=== PATIENT | female | born 1985 | race Hispanic/Latino ===

== ENCOUNTER 2020-09-25 23:05 | Emergency (ER) | payer SELFPAY ==
--- OUTSIDE RECORDS SUMMARY | 2020-09-25 23:08 | XMS REPORT | Continuity of Care Document ---
:1985 Author Organization [facility] t Address [address] [place] [address] Care Team Providers Name Role Phone Unavailable Unavailable Unavailable Payers Payer Name Policy Type Policy Number Effective Date Expiration Date S ource Problems This patient has no known problems. Allergies, Adverse Reactions, Alerts Allergy Allergy Status Severity Reaction(s) Onset Inactive Treating Comm ents Source Name Type Date Date Clinician No Known DA Active U [facility] Allergie 08-05 Paulo s 00:00: d 00 [facility] Medications This patient has no known medications. Procedures This patient has no known procedures. Results Test Description Test Time Test Comments Results Result Comments Source BASIC METABOLIC PANEL 2020-08-05 03:06:00 Test Item Value Reference Range Interpretation Comme nts SODIUM (test code = NA) 138 mmol/L 134-147 N POTASSIUM (test code = K) 3.5 mmol/L 3.4-5.0 N CHLORIDE (test code = CL) 107 mmol/L 100-108 N CARBON DIOXIDE (test code = CO2) 27 mmol/L 21-32 N ANION GAP (test code = GAP) 4.0 GAP calc 4.0-15.0 N GLUCOSE (test code = GLU) 88 MG/DL 70-110 N BLOOD UREA NITROGEN (test code = BUN) 10 MG/DL 7-18 N GLOMERULAR FILTRATION RATE (test code = GFR) >=60 max estimate estG FR >60 CREATININE (test code = CREAT) 0.7 MG/DL 0.6-1.0 N CALCIUM (test code = CA) 8.8 MG/DL 8.5-10.1 N HEPATIC FUNCTION [id number] 03:06:00 Test Item Value Reference Range Interpretation Comments TOTAL PROTEIN (test code = PROT) 6.5 G/DL 6.4-8.2 N ALBUMIN (test code = ALB) 3.2 G/DL 3.4-5.0 L BILIRUBIN TOTAL (test code = BILT) 0.60 MG/DL 0.2-1.2 N BILIRUBIN DIRECT (test code = 0.10 MG/DL 0.00-0.30 N BILD) BILIRUBIN INDIRECT (test code = 0.50 MG/DL 0.2-1.2 N BILIND) SGOT/AST (test code = AST) 41 Unit/L 15-37 H SGPT/ALT (test code = ALT) 37 Unit/L 12-78 N ALKALINE PHOSPHATASE TOTAL (test 66 Unit/L 45-117 N code = ALKP) [id number] 03:06:00 Test Item Value Reference Range Interpretation Comments LIPASE (test code = LIP) 125 Unit/L 114-286 N UR HCG [id number] 02:40:00 Test Item Value Reference Range Interpretation Comments UR HCG QUAL (test code = HCGQLU) NEGATIVE NEGATIVE UA RFLX MICR CULT IF [id number] 02:38:00 Test Item Value Reference Range Interpretation Comments UA COLOR (test code = COLU) YELLOW discript YEL/STRAW UA APPEARANCE (test code = CLEAR discript CLEAR APPU) UA GLUCOSE DIPSTICK (test NEGATIVE mg/dL NEG code = DGLUU) UA BILIRUBIN DIPSTICK (test NEGATIVE mg/dL NEG code = BILU) UA KETONE DIPSTICK (test NEGATIVE mg/dL NEG code = KETU) UA SPECIFIC GRAVITY (test >=1.030 SG 1.005-1.030 A code = SGU) UA BLOOD DIPSTICK (test NEGATIVE mg/DL NEG code = LEDA) UA PH DIPSTICK (test code = 5.5 pH UNITS 5.0-7.0 MADELYN) UA PROTEIN DIPSTICK (test NEGATIVE mg/dL NEG code = PROU) UA UROBILINIOGEN DIPSTICK 0.2 mg/dL <2.0 (test code = URO) UA NITRITE DIPSTICK (test NEGATIVE SCREEN NEG code = ZOIE) UA LEUKOCYTE ESTERASE NEGATIVE Leuk/mcL NEGATIVE DIPSTICK (test code = LEUU) UA CULTURE NEEDED? (test Criteria Culture CHK code = UACULT) Indication for culture: Dysuria/FrequencyUA RFLX MICR CULT IF INDICATED 2020-08-05 02:38:00 Test Item Value Reference Range Interpretation Comments UA COLOR (test code = YELLOW discript YEL/STRAW COLU) UA APPEARANCE (test code CLEAR discript CLEAR = APPU) UA GLUCOSE DIPSTICK (test NEGATIVE mg/dL NEG code = DGLUU) UA BILIRUBIN DIPSTICK NEGATIVE mg/dL NEG (test code = BILU) UA KETONE DIPSTICK (test NEGATIVE mg/dL NEG code = KETU) UA SPECIFIC GRAVITY (test >=1.030 SG 1.005-1.030 A code = SGU) UA BLOOD DIPSTICK (test NEGATIVE mg/DL NEG code = LEDA) UA PH DIPSTICK (test code 5.5 pH UNITS 5.0-7.0 = MADELYN) UA PROTEIN DIPSTICK (test NEGATIVE mg/dL NEG code = PROU) UA UROBILINIOGEN DIPSTICK 0.2 mg/dL <2.0 (test code = URO) UA NITRITE DIPSTICK (test NEGATIVE SCREEN NEG code = ZOIE) UA LEUKOCYTE ESTERASE NEGATIVE Leuk/mcL NEGATIVE DIPSTICK (test code = LEUU) UA CULTURE NEEDED? (test NO, WBC<10 Criteria Culture CHK code = UACULT) Indication for culture: Dysuria/FrequencyCBC W/AUTO [id number] 02:37:00 Test Item Value Reference Range Interpretation Comments WHITE BLOOD CELL (test code = 13.3 K/mm3 3.5-11.0 H WBC) RED BLOOD CELL (test code = 4.58 M/mm3 4.70-6.10 L RBC) HEMOGLOBIN (test code = HGB) 12.4 G/DL 10.4-14.9 N HEMATOCRIT (test code = HCT) 38.3 % 31.5-44.1 N MEAN CELL VOLUME (test code = 83.6 Fl 84.5-98.6 L MCV) MEAN CELL HGB (test code = MCH) 27.1 pg 27.0-34.2 N MEAN CELL HGB CONCETRATION 32.4 G/DL 31.5-34.0 N (test code = MCHC) RED CELL DISTRIBUTION WIDTH 12.7 SD 11.5-14.5 N (test code = RDW) PLATELET COUNT (test code = 281 K/mm3 150-450 N PLT) MEAN PLATELET VOLUME (test code 9.80 fL 7.0-10.5 N = MPV) NEUTROPHIL % (test code = NT%) 70.3 % 40-76 N IMMATURE GRANULOCYTE % (test 0.4 % 0.0-5.0 N code = IG%) LYMPHOCYTE % (test code = LY%) 19.4 % 20.5-51.1 L MONOCYTE % (test code = MO%) 7.8 % 1.7-9.3 N EOSINOPHIL % (test code = EO%) 1.7 % 0.0-6.0 N BASOPHIL % (test code = BA%) 0.4 % 0.0-2.0 N NUCLEATED RBC % (test code = 0.0 /100WBC% 0.0-1.0 N NRBC%) NEUTROPHIL # (test code = NT#) 9.3 K/mm3 1.8-7.6 H IMMATURE GRANULOCYTE # (test 0.05 x10 3/uL 0.00-0.03 H code = IG#) LYMPHOCYTE # (test code = LY#) 2.6 K/mm3 0.6-3.2 N MONOCYTE # (test code = MO#) 1.0 K/mm3 0.3-1.1 N EOSINOPHIL # (test code = EO#) 0.2 K/mm3 0.0-0.4 N BASOPHIL # (test code = BA#) 0.1 K/mm3 0.0-0.1 N NUCLEATED RBC # (test code = 0.0 K/mm3 0.0-0.1 N NRBC#) MANUAL DIFF REQUIRED (test code NO DIFF/SCN CRITERIA = MDIFF)
[2020-09-25] MEDS ORDERED: SIMETHICONE 80 MG TAB ONE (23:48)
[2020-09-25] MEDS ORDERED: PANTOPRAZOLE 40 MG INJ ONE (23:48)
[2020-09-25] MEDS ORDERED: NA CHLORIDE 0.9% 1,000 ML ONE (23:48)
[2020-09-25] MEDS ORDERED: PROMETHAZINE INJ 25 MG/ML AMP ONE (23:48)
[2020-09-25 23:55] LABS: Absolute Lymphocytes (CBC) 3.4 K/uL (0.7-4.9); Hematocrit 38.1 % (36.0-45.0); Lymphocytes % 30.2 % (15.3-44.8); MPV 8.5 fL (7.6-11.3)
[2020-09-26 00:16] LABS: ALT/SGPT 58 U/L (12-78); AST/SGOT 75 U/L (15-37); Albumin 3.9 g/dL (3.4-5.0); Alkaline Phosphatase 68 U/L (45-117); BUN Blood Urea Nitrogen 12 mg/dL (7-18); Bicarbonate 27 mmol/L (21-32); Bilirubin Direct 0.2 mg/dL (0-0.2); Bilirubin Total 0.4 mg/dL (0.2-1.0); Glucose Level 94 mg/dL (74-106); Lipase 468 U/L (73-393); Potassium 3.4 mmol/L (3.5-5.1); Protein, Total 7.7 g/dL (6.4-8.2); Sodium Level 140 mmol/L (136-145)
--- NOTE | 2020-09-26 01:21 | EDPHYS ---
Physician Documentation [facility] Name: Brandie Rees Age: 35 yrs Sex: Female : 1985 Arrival Date: 09/25/2020 Time: 23:07 Bed 15 Private MD: ED Physician Gerald Burt HPI: 09/25 23:56 This 35 yrs old Female presents to ER via Ambulatory with complaints of Vomiting, snw Abdominal Pain. 23:56 The patient presents to the emergency department with vomiting, abdominal pain, of the snw epigastric area and left upper quadrant, described as bloating , and radiates to the back. Onset: The symptoms/episode began/occurred acutely, 2 day(s) ago. The symptoms are aggravated by food . Severity of symptoms: At their worst the symptoms were moderate in the emergency department the symptoms are unchanged. The patient has not experienced similar symptoms in the past. The patient has not recently seen a physician. denies abdominal surgeries. LMP 09/04/20. 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 - Social history:: Smoking status: Patient denies any tobacco usage or history of. Patient/guardian denies using alcohol, street drugs. ROS: 23:55 Constitutional: Negative for fever, chills, and weight loss, Eyes: Negative for injury, snw pain, redness, and discharge, ENT: Negative for injury, pain, and discharge, Neck: Negative for injury, pain, and swelling, Cardiovascular: Negative for chest pain, palpitations, and edema, Respiratory: Negative for shortness of breath, cough, wheezing, and pleuritic chest pain, Back: Negative for injury and pain, : Negative for injury, bleeding, discharge, and swelling, MS/Extremity: Negative for injury and deformity, Skin: Negative for injury, rash, and discoloration, Neuro: Negative for headache, weakness, numbness, tingling, and seizure, Psych: Negative for depression, anxiety, suicide ideation, homicidal ideation, and hallucinations. 23:55 Abdomen/GI: Positive for abdominal pain, nausea, vomiting, abdominal distension, of the epigastric area and left upper quadrant. Exam: 23:55 Constitutional: This is a well developed, well nourished patient who is awake, alert, snw and in no acute distress. Head/Face: Normocephalic, atraumatic. Eyes: Pupils equal round and reactive to light, extra-ocular motions intact. Lids and lashes normal. Conjunctiva and sclera are non-icteric and not injected. Cornea within normal limits. Periorbital areas with no swelling, redness, or edema. ENT: Nares patent. No nasal discharge, no septal abnormalities noted. Tympanic membranes are normal and external auditory canals are clear. Oropharynx with no redness, swelling, or masses, exudates, or evidence of obstruction, uvula midline. Mucous membranes moist. Neck: Trachea midline, no thyromegaly or masses palpated, and no cervical lymphadenopathy. Supple, full range of motion without nuchal rigidity, or vertebral point tenderness. No Meningismus. Chest/axilla: Normal chest wall appearance and motion. Nontender with no deformity. No lesions are appreciated. Cardiovascular: Regular rate and rhythm with a normal S1 and S2. No gallops, murmurs, or rubs. Normal PMI, no JVD. No pulse deficits. Respiratory: Lungs have equal breath sounds bilaterally, clear to auscultation and percussion. No rales, rhonchi or wheezes noted. No increased work of breathing, no retractions or nasal flaring. Back: No spinal tenderness. No costovertebral tenderness. Full range of motion. Skin: Warm, dry with normal turgor. Normal color with no rashes, no lesions, and no evidence of cellulitis. MS/ Extremity: Pulses equal, no cyanosis. Neurovascular intact. Full, normal range of motion. Neuro: Awake and alert, GCS 15, oriented to person, place, time, and situation. Cranial nerves II-XII grossly intact. Motor strength 5/5 in all extremities. Sensory grossly intact. Cerebellar exam normal. Normal gait. 23:55 Abdomen/GI: Inspection: distension, Bowel sounds: diminished, Palpation: moderate abdominal tenderness, in the epigastric area and left upper quadrant. Vital Signs: 23:17 BP 122 / 75; Pulse 76; Resp 18; Temp 98.2(TE); Pulse Ox 100% on R/A; Weight 113.4 kg jb4 (R); Height 5 ft. 3 in. (160.02 cm) (R); Pain 8/10; 09/26 00:10 BP 113 / 57; Pulse 68; Resp 16; Temp 97.6; Pulse Ox 100% ; Pain 0/10; cr4 01:45 BP 108 / 71; Pulse 66; Resp 16; Pulse Ox 99% on R/A; jb4 09/25 23:17 Body Mass Index 44.29 (113.40 kg, 160.02 cm) jb4 MDM: 09/25 23:17 Patient medically screened. snw 09/26 01:21 Data reviewed: vital signs, nurses notes. Data interpreted: Pulse oximetry: on room air snw is 100 %. Interpretation: normal. Counseling: I had a detailed discussion with the patient and/or guardian regarding: the historical points, exam findings, and any diagnostic results supporting the discharge/admit diagnosis, lab results, radiology results, the need for outpatient follow up, to return to the emergency department if symptoms worsen or persist or if there are any questions or concerns that arise at home. Response to treatment: the patient's symptoms have resolved after treatment, the patient's pain is gone. Special discussion: Based on the patient's Hx, exam, and Dx evaluation, there is no indication for emergent surgery or inpatient Tx. It is understood by the patient/guardian that if the Sx's persist or worsen they need to return immediately for re-evaluation. Based on the history and exam findings, there is no indication for further emergent testing or inpatient evaluation. I discussed with the patient/guardian the need to see the primary care provider for further evaluation of the symptoms. 09/25 23:27 Order name: Basic Metabolic Panel; Complete Time: 00:32 snw 09/25 23:27 Order name: CBC with Diff; Complete Time: 00:02 snw 09/25 23:27 Order name: Hepatic Function; Complete Time: 00:32 snw 09/25 23:27 Order name: Lipase; Complete Time: 00:32 snw 09/25 23:27 Order name: Test, Serum; Complete Time: 00:12 snw 09/25 23:27 Order name: IV Saline Lock; Complete Time: 23:40 snw 09/25 23:27 Order name: Labs collected and sent; Complete Time: 23:40 snw Administered Medications: 09/25 23:35 Drug: Simethicone 120 mg Route: PO; jb4 09/26 00:57 Follow up: Response: No adverse reaction; Pain is decreased cr4 00:00 Drug: NS 0.9% 1000 ml Route: IV; Rate: 1 bolus; Site: right antecubital; cr4 00:56 Follow up: Rate change bolus; IV Status: Completed infusion; IV Intake: 1000ml cr4 00:08 Drug: Phenergan 12.5 mg Route: IVP; Site: right antecubital; cr4 00:56 Follow up: Response: No adverse reaction; Nausea is decreased cr4 00:09 Drug: ProTONIX 40 mg Route: IVP; Site: right antecubital; cr4 00:56 Follow up: Response: No adverse reaction cr4 Disposition: 05:21 Co-signature as Attending Physician, Gerald Burt MD I agree with the assessment and tw4 plan of care. Disposition: 09/26/20 01:20 Discharged to Home. Impression: Upper abdominal pain, unspecified, Vomiting. - Condition is Stable. - Discharge Instructions: Abdominal Pain, Adult, Fat and Cholesterol Restricted Diet, Nausea and Vomiting, Adult, Rehydration, Adult. - Prescriptions for Bentyl 20 mg Oral Tablet - take 1 tablet by ORAL route every 6 hours As needed; 20 tablet. Carafate 1 gram Oral Tablet - take 1 tablet by ORAL route 4 times per day take on an empty stomach, beginning on waking and last dose at bedtime; 100 tablet. promethazine 25 mg Oral Tablet - take 1 tablet by ORAL route every 6 hours As needed; 20 tablet. - Work release form, Medication Reconciliation Form, Thank You Letter, Antibiotic Education, Prescription Opioid Use form. - Follow up: Emergency Department; When: As needed; Reason: Worsening of condition. Follow up: Private Physician; When: 2 - 3 days; Reason: Recheck today's complaints, Continuance of care, Re-evaluation by your physician. Signatures: Dispatcher [employer] EDDea Baldwin FNP-C FNP-Geraldine Arellano RN RN cr4 Deangelo Zhou RN RN 4 Gerald Burt MD MD 4 Corrections: (The following items were deleted from the chart) 01:51 01:20 09/26/2020 01:20 Discharged to Home. Impression: Upper abdominal pain, jb4 unspecified; Vomiting. Condition is Stable. Forms are Medication Reconciliation Form, Thank You Letter, Antibiotic Education, Prescription Opioid Use. Follow up: Emergency Department; When: As needed; Reason: Worsening of condition. Follow up: Private Physician; When: 2 - 3 days; Reason: Recheck today's complaints, Continuance of care, Re-evaluation by your physician. snw
--- NOTE | 2020-09-26 01:21 | ER ---
Nurse's Notes [facility] Name: Brandie Rees Age: 35 yrs Sex: Female : 1985 Arrival Date: 09/25/2020 Time: 23:07 Bed 15 Private MD: Diagnosis: Upper abdominal pain, unspecified;Vomiting Presentation: 09/25 23:17 Chief complaint: Patient states: I have been having abdominal pain since last jb4 Monday. Tonight I have a stabbing pain in my upper abdomen that goes to my back and I vomited once. Coronavirus screen: Client denies travel out of the [place] in the last 14 days. At this time, the client does not indicate any symptoms associated with coronavirus-19. Ebola Screen: Patient negative for fever greater than or equal to 101.5 degrees Fahrenheit, and additional compatible Ebola Virus Disease symptoms. Initial Sepsis Screen: Does the patient meet any 2 criteria? No. Patient's initial sepsis screen is negative. Does the patient have a suspected source of infection? No. Patient's initial sepsis screen is negative. Risk Assessment: Do you want to hurt yourself or someone else? Patient reports no desire to harm self or others. Onset of symptoms was September 23, 2020. Transition of care: patient was not received from another setting of care. 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 - Social history:: Smoking status: Patient denies any tobacco usage or history of. Patient/guardian denies using alcohol, street drugs. Screenin:11 Abuse screen: Denies threats or abuse. Nutritional screening: No deficits noted. jb4 Tuberculosis screening: No symptoms or risk factors identified. Fall Risk None identified. Assessment: 23:11 General: Appears in no apparent distress. uncomfortable, Behavior is calm, cooperative, jb4 appropriate for age. Pain: Complains of pain in abdomen Pain does not radiate. Pain currently is 0 out of 10 on a pain scale. Neuro: Level of Consciousness is awake, alert, obeys commands, Oriented to person, place, time, situation. Cardiovascular: Patient's skin is warm and dry. Respiratory: Airway is patent Respiratory effort is even, unlabored, Respiratory pattern is regular, symmetrical. GI: Abdomen is non-distended, obese, Bowel sounds present X 4 quads. Abd is soft and non tender X 4 quads. : No signs and/or symptoms were reported regarding the genitourinary system. EENT: No signs and/or symptoms were reported regarding the EENT system. Derm: Skin is intact, Skin is pink, warm \T\ dry. Musculoskeletal: Circulation, motion, and sensation intact. Range of motion: intact in all extremities. 09/26 00:00 Reassessment: Patient appears in no apparent distress at this time. Patient and/or jb4 family updated on plan of care and expected duration. Pain level reassessed. Patient is alert, oriented x 3, equal unlabored respirations, skin warm/dry/pink. Patient states feeling better. 01:49 Reassessment: Patient appears in no apparent distress at this time. Patient and/or jb4 family updated on plan of care and expected duration. Pain level reassessed. Patient is alert, oriented x 3, equal unlabored respirations, skin warm/dry/pink. Vital Signs: 09/25 23:17 BP 122 / 75; Pulse 76; Resp 18; Temp 98.2(TE); Pulse Ox 100% on R/A; Weight 113.4 kg jb4 (R); Height 5 ft. 3 in. (160.02 cm) (R); Pain 8/10; 09/26 00:10 BP 113 / 57; Pulse 68; Resp 16; Temp 97.6; Pulse Ox 100% ; Pain 0/10; cr4 01:45 BP 108 / 71; Pulse 66; Resp 16; Pulse Ox 99% on R/A; [facility] 09/25 23:17 Body Mass Index 44.29 (113.40 kg, 160.02 cm) [facility] ED Course: 09/25 23:07 Patient arrived in ED. bp1 23:11 Patient has correct armband on for positive identification. Bed in low position. Call [facility] light in reach. Side rails up X 1. Pulse ox on. NIBP on. 23:12 Dea Merino FNP-C is PHCP. snw 23:12 Gerald Burt MD is Attending Physician. snw 23:17 Deangelo Zhou, RN is Primary Nurse. jb4 23:20 Triage completed. jb4 23:20 Arm band placed on right wrist. jb4 23:40 Inserted saline lock: 20 gauge in right antecubital area, using aseptic technique. dh4 Blood collected. 09/26 01:50 No provider procedures requiring assistance completed. IV discontinued, intact, jb4 bleeding controlled, No redness/swelling at site. Pressure dressing applied. Administered Medications: 09/25 23:35 Drug: Simethicone 120 mg Route: PO; jb4 11 00:57 Follow up: Response: No adverse reaction; Pain is decreased cr4 00:00 Drug: NS 0.9% 1000 ml Route: IV; Rate: 1 bolus; Site: right antecubital; cr4 00:56 Follow up: Rate change bolus; IV Status: Completed infusion; IV Intake: 1000ml cr4 00:08 Drug: Phenergan 12.5 mg Route: IVP; Site: right antecubital; cr4 00:56 Follow up: Response: No adverse reaction; Nausea is decreased cr4 00:09 Drug: ProTONIX 40 mg Route: IVP; Site: right antecubital; cr4 00:56 Follow up: Response: No adverse reaction cr4 Intake: 00:56 IV: 1000ml; Total: 1000ml. cr4 Outcome: 01:20 Discharge ordered by . snw 01:50 Discharged to home ambulatory, with family. jb4 01:50 Condition: stable 01:50 Discharge instructions given to patient, Instructed on discharge instructions, follow up and referral plans. medication usage, Demonstrated understanding of instructions, follow-up care, medications, Prescriptions given X 3. 01:51 Patient left the ED. jb4 Signatures: Dea Merino FNP-C BOTTLE CASER-Csnw Geraldine Chiu RN RN jerson4 Deangelo Zhou, VIOLETA MCDANIEL jb4 Kam Webb 4 Lolita Mckay
[2020-09-26 02:29] VITALS: TEMP 97.6
[2020-09-26 02:30] VITALS: BP 108/71; O2SAT 99
== END 2020-09-26 01:51 | disposition home or self-care (01) ==
LOC: ER 23:05
DX: R10.10 Upper abdominal pain, unspecified (principal)
CPT/HCPCS: 36415; 80048; 80076; 83690; 84703; 85025; 96361; 96374; 96375; 99284; C9113; J2550; J7030

== ENCOUNTER 2020-10-07 04:21 | Emergency (ER) | payer SELFPAY ==
[2020-10-07] MEDS ORDERED: ONDANSETRON 4 MG/2 ML VIAL ONE (04:52)
[2020-10-07] MEDS ORDERED: FAMOTIDINE 20 MG/2 ML VIAL IV ONE (04:52)
[2020-10-07] MEDS ORDERED: NA CHLORIDE 0.9% 1,000 ML ONE (04:52)
[2020-10-07] MEDS ORDERED: MORPHINE 2 MG/ML SYR ONE (04:52)
[2020-10-07 05:06] LABS: Absolute Lymphocytes (CBC) 1.7 K/uL (0.7-4.9); Basophils % 0.8 % (0-1.3); Lymphocytes % 22.5 % (15.3-44.8); MPV 8.5 fL (7.6-11.3); RBC Red Blood Cell Count 4.93 M/uL (3.86-4.86)
--- NOTE | 2020-10-07 05:15 | EDPHYS ---
Physician Documentation [facility] Name: Brandie Rees Age: 35 yrs Sex: Female : 1985 Arrival Date: 10/07/2020 Time: 04:23 Bed 19 Private MD: WOJCIECH Physician Ruben Helms HPI: 10/07 05:08 This 35 yrs old Female presents to ER via Ambulatory with complaints of bronwyn Abdominal Pain, Vomiting. 05:08 The patient presents to the emergency department with nausea, vomiting, that is bronwyn intermittent. Onset: The symptoms/episode began/occurred this morning, today. Possible causes: unknown. The symptoms are aggravated by food , The symptoms are alleviated by nothing. Associated signs and symptoms: The patient has no apparent associated signs or symptoms. Severity of symptoms: At their worst the symptoms were mild moderate in the emergency department the symptoms have improved mildly. The patient has not experienced similar symptoms in the past. INSTALLER: 08:18 LMP N/A - iw Historical: - Allergies: 04:35 No Known Allergies; sg - Home Meds: 04:35 None [Active]; sg - PMHx: 04:35 None; sg - PSHx: 04:35 None; sg - Immunization history:: Adult Immunizations up to date. - Social history:: Smoking status: Patient denies any tobacco usage or history of. - Family history:: not pertinent. ROS: 05:08 Constitutional: Negative for fever, chills, and weight loss, Eyes: Negative for injury, bronwyn pain, redness, and discharge, ENT: Negative for injury, pain, and discharge, Neck: Negative for injury, pain, and swelling, Cardiovascular: Negative for chest pain, palpitations, and edema, Respiratory: Negative for shortness of breath, cough, wheezing, and pleuritic chest pain, Back: Negative for injury and pain, : Negative for injury, bleeding, discharge, and swelling, MS/Extremity: Negative for injury and deformity, Skin: Negative for injury, rash, and discoloration, Neuro: Negative for headache, weakness, numbness, tingling, and seizure, Psych: Negative for depression, anxiety, suicide ideation, homicidal ideation, and hallucinations, Allergy/Immunology: Negative for hives, rash, and allergies, Endocrine: Negative for neck swelling, polydipsia, polyuria, polyphagia, and marked weight changes, Hematologic/Lymphatic: Negative for swollen nodes, abnormal bleeding, and unusual bruising. 05:08 Abdomen/GI: Positive for abdominal pain, abdominal cramps. Exam: 05:08 Constitutional: This is a well developed, well nourished patient who is awake, alert, bronwyn and in no acute distress. Head/Face: Normocephalic, atraumatic. Eyes: Pupils equal round and reactive to light, extra-ocular motions intact. Lids and lashes normal. Conjunctiva and sclera are non-icteric and not injected. Cornea within normal limits. Periorbital areas with no swelling, redness, or edema. ENT: Nares patent. No nasal discharge, no septal abnormalities noted. Tympanic membranes are normal and external auditory canals are clear. Oropharynx with no redness, swelling, or masses, exudates, or evidence of obstruction, uvula midline. Mucous membranes moist. Neck: Trachea midline, no thyromegaly or masses palpated, and no cervical lymphadenopathy. Supple, full range of motion without nuchal rigidity, or vertebral point tenderness. No Meningismus. Chest/axilla: Normal chest wall appearance and motion. Nontender with no deformity. No lesions are appreciated. Cardiovascular: Regular rate and rhythm with a normal S1 and S2. No gallops, murmurs, or rubs. Normal PMI, no JVD. No pulse deficits. Respiratory: Lungs have equal breath sounds bilaterally, clear to auscultation and percussion. No rales, rhonchi or wheezes noted. No increased work of breathing, no retractions or nasal flaring. Back: No spinal tenderness. No costovertebral tenderness. Full range of motion. Skin: Warm, dry with normal turgor. Normal color with no rashes, no lesions, and no evidence of cellulitis. MS/ Extremity: Pulses equal, no cyanosis. Neurovascular intact. Full, normal range of motion. Neuro: Awake and alert, GCS 15, oriented to person, place, time, and situation. Cranial nerves II-XII grossly intact. Motor strength 5/5 in all extremities. Sensory grossly intact. Cerebellar exam normal. Normal gait. Psych: Awake, alert, with orientation to person, place and time. Behavior, mood, and affect are within normal limits. 05:08 Abdomen/GI: Inspection: abdomen appears normal, Bowel sounds: normal, Palpation: mild abdominal tenderness, moderate abdominal tenderness, in the epigastric area and right upper quadrant, Indicators: Elaine's sign is positive, Liver: no appreciated palpable abnormalities, Hernia: not appreciated. Vital Signs: 04:32 BP 138 / 77; Pulse 78; Resp 18; Temp 98.7(O); Pulse Ox 100% on R/A; Weight 113.4 kg sg (R); Height 5 ft. 3 in. (160.02 cm) (R); Pain 8/10; 04:55 BP 128 / 52; Pulse 70; Resp 16; Pulse Ox 100% on R/A; Pain 8/10; sg 05:45 BP 105 / 48; Pulse 59; Resp 16; Pulse Ox 100% on R/A; jb4 06:45 BP 123 / 68; Pulse 75; Resp 16; Temp 97.7(TE); Pulse Ox 100% on R/A; jb4 04:32 Body Mass Index 44.29 (113.40 kg, 160.02 cm) sg MDM: 04:27 Patient medically screened. [facility] 05:10 Differential diagnosis: Nonspecific abd pain, cholecystitis, pancreatitis, bronwyn diverticulitis, viral gastroenteritis, gastroenteritis. Data reviewed: vital signs, nurses notes, lab test result(s), radiologic studies, CT scan. Data interpreted: boss dyer: rate is 70 beats/min, rhythm is regular, Pulse oximetry: on room air is 100 %. Test interpretation: by ED physician or midlevel provider:. Counseling: I had a detailed discussion with the patient and/or guardian regarding: the historical points, exam findings, and any diagnostic results supporting the discharge/admit diagnosis, lab results, radiology results, the need for further work-up and treatment in the hospital. 10/07 04:33 Order name: Basic Metabolic Panel; Complete Time: 06:20 [facility] 10/07 04:33 Order name: CBC with Diff; Complete Time: 06:20 [facility] 10/07 04:33 Order name: Hepatic Function; Complete Time: 06:20 [facility] 10/07 04:33 Order name: Lipase; Complete Time: 06:20 [facility] 10/07 05:34 Order name: Urine --Ancillary (enter results) [facility] 10/07 05:35 Order name: Urine Dipstick--Ancillary (enter results) [facility] 10/07 04:33 Order name: US Abdomen Limited [facility] 10/07 05:05 Order name: CT Abd/Pelvis - IV Contrast Only [facility] 10/07 05:47 Order name: Urine --Ancillary; Complete Time: 06:20 [facility] 10/07 05:48 Order name: Urine Dipstick-Ancillary; Complete Time: 06:20 [facility] 10/07 07:20 Order name: US [facility] 10/07 04:33 Order name: IV Saline Lock; Complete Time: 04:55 [facility] 10/07 04:33 Order name: Labs collected and sent; Complete Time: 04:55 [facility] 10/07 04:33 Order name: Urine Dipstick-Ancillary (obtain specimen); Complete Time: 05:24 [facility] 10/07 04:33 Order name: Urine Test (obtain specimen); Complete Time: 05:24 [facility] Administered Medications: 04:50 Drug: NS 0.9% 1000 ml Route: IV; Rate: 1 bolus; Site: right antecubital; 04:50 Drug: morphine 2 mg Route: IVP; Site: right antecubital; sg 05:20 Follow up: Response: No adverse reaction; Pain is decreased jb4 04:50 Drug: Zofran (Ondansetron) 4 mg Route: IVP; Site: right antecubital; sg 05:20 Follow up: Response: No adverse reaction jb4 04:50 Drug: Pepcid 20 mg Route: IVP; Site: right antecubital; sg 05:20 Follow up: Response: No adverse reaction jb4 05:32 Drug: Zosyn 3.375 grams Route: IVPB; Infused Over: 60 mins; Site: right antecubital; jb4 Disposition: 10/07/20 05:[address] [facility]. Diagnosis are Abdominal tenderness, Cholecystitis, Cholelithiasis, Acute pancreatitis. - Reason for transfer: Higher level of care. - Accepting physician is to dr yessy balderrama. - Condition is Stable. - Problem is new. - Symptoms have improved. Signatures: Dispatcher [employer] EDMS Cuong Wilkins RN Ruben Zamora MD MD cha Williams, Irene RN VIOLETA iw Demi Eaton RN RN tl1 Deangelo Zhou RN RN jb4 Corrections: (The following items were deleted from the chart) 05:44 05:14 Hospitalization Ordered by Robinson Jade MD for Observation. Preliminary diagnosis tl1 is Abdominal tenderness; Functional dyspepsia; Cholelithiasis; Cholecystitis; Obesity, unspecified. Bed requested for Telemetry/MedSurg (observation). Status is Observation. Condition is Stable. Problem is new. Symptoms have improved. bronwyn 05:49 05:44 10/07/2020 05:14 Hospitalization Ordered by Robinson Jade MD for Observation. bronwyn Preliminary diagnosis is Abdominal tenderness; Functional dyspepsia; Cholelithiasis; Cholecystitis; Obesity, unspecified. Bed requested for [facility] ER HOLD. Status is Observation. Condition is Stable. Problem is new. Symptoms have improved. tl1 08:18 05:51 10/07/2020 05:[address] [facility]. iw Diagnosis is Abdominal tenderness; Cholecystitis; Cholelithiasis; Acute pancreatitis. Reason for transfer: Higher level of care. Accepting physician is to dr yessy balderrama. Condition is Stable. Problem is new. Symptoms have improved. bronwyn
--- NOTE | 2020-10-07 05:15 | ER ---
Nurse's Notes [facility] Name: Brandie Rees Age: 35 yrs Sex: Female : 1985 Arrival Date: 10/07/2020 Time: 04:23 Bed 19 Private MD: Diagnosis: Abdominal tenderness;Cholecystitis;Cholelithiasis;Acute pancreatitis Presentation: 10/07 04:32 Chief complaint: Patient states: pt reports pain LUQ, Epigastric area, denies f/chills sg at this time, reports having pain that radiates to the shoulder, comes and goes. Coronavirus screen: Client denies travel out of the [place] in the last 14 days. At this time, the client does not indicate any symptoms associated with coronavirus-19. Ebola Screen: Patient negative for fever greater than or equal to 101.5 degrees Fahrenheit, and additional compatible Ebola Virus Disease symptoms Patient denies exposure to infectious person. Patient denies travel to an Ebola-affected area in the 21 days before illness onset. No symptoms or risks identified at this time. Initial Sepsis Screen: Does the patient meet any 2 criteria? No. Patient's initial sepsis screen is negative. Does the patient have a suspected source of infection? Yes: Acute abdominal pain. Risk Assessment: Do you want to hurt yourself or someone else? Patient reports no desire to harm self or others. Onset of symptoms was October 07, 2020. 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 - Social history:: Smoking status: Patient denies any tobacco usage or history of. - Family history:: not pertinent. Screenin:40 Abuse screen: Denies threats or abuse. Denies injuries from another. Nutritional sg screening: No deficits noted. Tuberculosis screening: No symptoms or risk factors identified. Never had TB. Fall Risk None identified. Assessment: 04:40 General: Appears in no apparent distress. uncomfortable, well groomed, well developed, sg well nourished, Behavior is calm, cooperative, appropriate for age. Pain: Complains of pain in epigastric area and left upper quadrant Quality of pain is described as aching, sharp. Neuro: Level of Consciousness is awake, alert, obeys commands, Oriented to person, place, time, situation, Moves all extremities. Full function Gait is steady, Speech is normal, Facial symmetry appears normal. Cardiovascular: Patient's skin is warm and dry. Chest pain is denied. Respiratory: Airway is patent Respiratory effort is even, unlabored, Respiratory pattern is regular, symmetrical. GI: Abdomen is round non-distended, Bowel sounds present X 4 quads. Abd is soft X 4 quads Abdomen is tender to palpation in epigastric area and left upper quadrant. : No signs and/or symptoms were reported regarding the genitourinary system. EENT: No signs and/or symptoms were reported regarding the EENT system. Derm: Skin is pink, warm \T\ dry. Musculoskeletal: Circulation, motion, and sensation intact. Range of motion: intact in all extremities. 05:45 Reassessment: Patient appears in no apparent distress at this time. Patient and/or jb4 family updated on plan of care and expected duration. Pain level reassessed. Patient is alert, oriented x 3, equal unlabored respirations, skin warm/dry/pink. Patient states feeling better. 06:42 Reassessment: Patient appears in no apparent distress at this time. Patient and/or jb4 family updated on plan of care and expected duration. Pain level reassessed. Patient is alert, oriented x 3, equal unlabored respirations, skin warm/dry/pink. 06:56 Reassessment: attempted to call report, no answer received, informed transfer center jb that we would call back after shift change. 07:22 Reassessment: attempt to call report, asked for 20 minutes. iw Vital Signs: 04:32 BP 138 / 77; Pulse 78; Resp 18; Temp 98.7(O); Pulse Ox 100% on R/A; Weight 113.4 kg sg (R); Height 5 ft. 3 in. (160.02 cm) (R); Pain 8/10; 04:55 BP 128 / 52; Pulse 70; Resp 16; Pulse Ox 100% on R/A; Pain 8/10; sg 05:45 BP 105 / 48; Pulse 59; Resp 16; Pulse Ox 100% on R/A; jb4 06:45 BP 123 / 68; Pulse 75; Resp 16; Temp 97.7(TE); Pulse Ox 100% on R/A; jb4 04:32 Body Mass Index 44.29 (113.40 kg, 160.02 cm) ED Course: 04:23 Patient arrived in ED. cl3 04:27 Ruben Helms MD is Attending Physician. bronwyn 04:32 Arm band placed on. sg 04:34 Triage completed. sg 04:53 No provider procedures requiring assistance completed. Initial lab(s) drawn, by ma, sg sent to lab. Inserted saline lock: 20 gauge in right antecubital area, using aseptic technique. Blood collected. 05:12 Robinson Jade MD is Hospitalizing Provider. bronwyn 05:17 Deangelo Zhou, VIOLETA is Primary Nurse. jb4 05:[address] [facility] with VIOLETA Yu. mt 06:18 Dr. Helms called [facility] transfer center for update on transfer, waiting on mo hospitalist. 06:30 Admin approval given by Aimee Quesada to [facility] room [address] Dsouza. mt 06:43 Contacted [facility] for transport, 30 min ETA. mt 07:02 Report received from VIOLETA Campbell. tw2 08:00 Patient has correct armband on for positive identification. iw 08:18 Patient transferred, IV remains in place. iw Administered Medications: 04:50 Drug: NS 0.9% 1000 ml Route: IV; Rate: 1 bolus; Site: right antecubital; sg 04:50 Drug: morphine 2 mg Route: IVP; Site: right antecubital; sg 05:20 Follow up: Response: No adverse reaction; Pain is decreased jb4 04:50 Drug: Zofran (Ondansetron) 4 mg Route: IVP; Site: right antecubital; sg 05:20 Follow up: Response: No adverse reaction jb4 04:50 Drug: Pepcid 20 mg Route: IVP; Site: right antecubital; sg 05:20 Follow up: Response: No adverse reaction jb4 05:32 Drug: Zosyn 3.375 grams Route: IVPB; Infused Over: 60 mins; Site: right antecubital; jb4 Outcome: 05:14 Decision to Hospitalize by Provider. bronwyn 05:51 ER care complete, transfer ordered by . bronwyn 08:16 Transferred by ground EMS to [facility], Transfer form completed. iw X-rays sent w/ patient. 08:16 Condition: good 08:16 Discharge instructions given to patient, Instructed on the need for transfer. 08:18 Patient left the ED. Signatures: Cuong Wilkins RN RN Ruben Thomas MD MD cha Williams, Irene RN RN Heidi Calderon RN RN tw2 Deangelo Zhou RN RN Suzan Nicole mt, Charde cl3 Corrections: (The following items were deleted from the chart) 06:47 06:30 Admin approval given by Aimee Quesada to [facility] room [address] [facility]
[2020-10-07] MEDS ORDERED: PIPER/TAZO/NS 3.375gm 3.375 GM/100 ML BAG ONE (05:38)
[2020-10-07 05:40] LABS: Albumin 3.6 g/dL (3.4-5.0); Alkaline Phosphatase 79 U/L (45-117); BUN Blood Urea Nitrogen 9 mg/dL (7-18); Bicarbonate 23 mmol/L (21-32); Bilirubin Direct 0.5 mg/dL (0-0.2); Bilirubin Total 1.1 mg/dL (0.2-1.0); Glucose Level 116 mg/dL (74-106); Lipase 13644 U/L (73-393); Potassium 3.8 mmol/L (3.5-5.1); Sodium Level 138 mmol/L (136-145)
[2020-10-07 05:41] LABS: ALT/SGPT 331 U/L (12-78); AST/SGOT 333 U/L (15-37)
[2020-10-07 05:47] LABS: Urine Specific Gravity 1.015 (1.005-1.030)
[2020-10-07 05:48] LABS: Urine Blood NEGATIVE (NEG); Urine Glucose NEGATIVE (NEG); Urine Protein NEGATIVE (NEG); Urine Specific Gravity 1.015 (1.005-1.030)
--- NOTE | 2020-10-07 07:19 | RAD REPORT ---
EXAM DESCRIPTION: US - Abdomen Exam Limited - 10/07/2020 6:59 am CLINICAL HISTORY: ABD PAIN COMPARISON: Abdomen Pelvis W Contrast dated 10/07/2020 FINDINGS: No gallstones, sludge or other significant abnormalities within the gallbladder lumen. A 3 - 4 millimeter sized polyp is seen adherent to the wall in the gallbladder fundus. There is no wall t hickening or pericholecystic fluid. No common duct stone or biliary tree dilatation identified. IMPRESSION: No significant gallbladder or biliary tree finding.
--- NOTE | 2020-10-07 09:48 | RAD REPORT ---
EXAM DESCRIPTION: CT - Abdomen Pelvis W Contrast - 10/07/2020 6:54 am CLINICAL HISTORY: The patient is 35 years old and is Female; ABD PAIN TECHNIQUE: Axial computed tomography images of the abdomen and pelvis with intravenous contrast. S agittal and coronal reformatted images were created and reviewed. This CT exam was performed using one or more of the following dose reduction techniques: automated exposure control, adjustment of t he mA and/or kV according to patient size, and/or use of iterative reconstruction technique. COMPARISON: No relevant prior studies available. FINDINGS: ARTIFACTS: The exam is suboptimal secondary to motion artifact. LUNG BASES: Unremarkable. No mass. No consolidation. ABDOMEN: LIVER: The liver is enlarged. GALLBLADDER AND BILE DUCTS: No calcified stones. No ductal dilation. PANCREAS: Suggestion of mild inflammatory stranding involving the head and uncinate process of t he pancreas is noted. The pancreas enhances uniformly. SPLEEN: Unremarkable. ADRENALS: Unremarkable. No mass. KIDNEYS AND URETERS: A 1 cm left renal cyst is present. The kidneys enhance symmetrically. There is no obstructing renal or ureteral calculus. STOMACH AND BOWEL: The stomach is decompressed. The small bowel is relatively normal in caliber. Stool is present throughout colon. There is no mucosal thickening or evidence of bowel obstruction. PELVIS: APPENDIX: The appendix is normal in caliber without surrounding inflammation. BLADDER: Unremarkable. No mass. REPRODUCTIVE: Unremarkable as visualized. ABDOMEN and PELVIS: INTRAPERITONEAL SPACE: Unremarkable. No free air. No significant fluid collection. BONES/JOINTS: No acute fracture. SOFT TISSUES: The soft tissues are normal. VASCULATURE: Unremarkable. No abdominal aortic aneurysm. LYMPH NODES: Unremarkable. No enlarged lymph nodes. IMPRESSION: Suggestion of subtle inflammatory stranding involving the head and uncinate process of t he pancreas. Findings may be secondary to mild acute pancreatitis. Correlation with patient's laborat ory values is recommended. Electronically signed by: Bharati Ortiz MD 10/07/2020 6:31 AM [employer] Due to temporary technical issues with the PACS/Fluency reporting system, reports are being signed by the in house radiologist without review as a courtesy to ensure prompt reporting. The interpreting r adiologist is fully responsible for the content of the report.
[2020-10-07 12:01] VITALS: O2SAT 100
[2020-10-07 12:06] VITALS: BP 123/68; TEMP 97.7
== END 2020-10-07 20:08 | disposition home or self-care (01) ==
LOC: ER 04:21 → UNDOADMOB 05:21 → INTOOBSV 05:21 → OBSVTOIN 05:21 → ERHOLD 05:21 → UNDODISIN 08:08 → ER 20:08
DX: K80.10 Calculus of gallbladder with chronic cholecystitis without obstruction (principal); K85.90 Acute pancreatitis without necrosis or infection, unspecified
CPT/HCPCS: 36415; 74177; 76705; 80048; 80076; 81003; 81025; 83690; 85025; 96374; 96375; 99285; J2270; J2405; J2543; J7030; Q9967

== ENCOUNTER 2020-10-18 21:17 | Emergency (ER) | payer SELFPAY ==
--- OUTSIDE RECORDS SUMMARY | 2020-10-18 21:20 | XMS REPORT | Clinical Summary ---
:1985 Author Organization [facility] Address [address] [place] [address] Care Team Providers Name Role Phone Unavailable Primary Care Provider Unavailable Allergies No Known Allergies Medications Medication Sig Dispensed Refills Start Date End Date Status omeprazole Take 1 capsule 30 capsule 0 10/10/2020 10/10/2021 A ctive (PriLOSEC) 20 MG (20 mg total) by capsule mouth daily. Active Problems Problem Noted Date Pancreatitis, acute 10/07/2020 Encounters Date Type Specialty Care Team Description 10/07/2020 - Hospital Encounter General Internal [facility] Acu te pancreatitis, 10/10/2020 Medicine , MD Deon unspecified Gonzalez, Mary complication st atusFredy MD unspecified Surjit, pancreatitis ty pe Mychal Price MD (Primary Dx) after 10/18/2019 Social History Tobacco Use Types Packs/Day Years Used Date Never Assessed Sex Assigned at Date Recorded Not on file Last Filed Vital Signs Vital Sign Reading Time Taken Comments Blood Pressure 109/63 10/10/2020 7:53 AM EMPLOYEE BENEFITS ADMINISTRATOR Pulse 69 10/10/2020 7:53 AM EMPLOYEE BENEFITS ADMINISTRATOR Temperature 36.3 C (97.3 F) 10/10/2020 7:53 AM EMPLOYEE BENEFITS ADMINISTRATOR Respiratory Rate 18 10/10/2020 7:53 AM EMPLOYEE BENEFITS ADMINISTRATOR Oxygen Saturation 98% 10/10/2020 7:53 AM EMPLOYEE BENEFITS ADMINISTRATOR Inhaled Oxygen Concentration - - Weight 113.4 kg (250 lb) 10/07/2020 9:39 AM EMPLOYEE BENEFITS ADMINISTRATOR Height 160 cm (5' 3") 10/07/2020 9:39 AM EMPLOYEE BENEFITS ADMINISTRATOR Body Mass Index 44.29 10/07/2020 9:39 AM EMPLOYEE BENEFITS ADMINISTRATOR Plan of Treatment Health Maintenance Due Date Last Done Comments CERVICAL CANCER SCREENING PAP ONLY (Age 21-65) 02/02/2008 INFLUENZA VACCINE (#1) 2020 LIPID PANEL 10/07/2023 10/07/2020 Procedures Procedure Name Priority Date/Time Associated Comments Diagnosis COMPREHENSIVE STAT 10/10/2020 8:24 Results fo r this METABOLIC PANEL AM EMPLOYEE BENEFITS ADMINISTRATOR procedure ar e in the results section. CBC W/PLT COUNT & AUTO Routine 10/09/2020 4:05 R esults for this DIFFERENTIAL AM EMPLOYEE BENEFITS ADMINISTRATOR procedure are i n the results section. CBC W/PLT COUNT & AUTO Routine 10/09/2020 4:05 R esults for this DIFFERENTIAL AM EMPLOYEE BENEFITS ADMINISTRATOR procedure are i n the results section. HEPATIC FUNCTION PANEL Routine 10/09/2020 4:05 R esults for this AM EMPLOYEE BENEFITS ADMINISTRATOR procedure are i n the results section. BASIC METABOLIC PANEL Routine 10/09/2020 4:05 Re sults for this (7) AM EMPLOYEE BENEFITS ADMINISTRATOR procedure are i n the results section. HEPATITIS PANEL, ACUTE Routine 10/08/2020 2:30 R esults for this PM EMPLOYEE BENEFITS ADMINISTRATOR procedure are i n the results section. CBC W/PLT COUNT & AUTO Routine 10/08/2020 4:32 R esults for this DIFFERENTIAL AM EMPLOYEE BENEFITS ADMINISTRATOR procedure are i n the results section. CBC W/PLT COUNT & AUTO Routine 10/08/2020 4:32 R esults for this DIFFERENTIAL AM EMPLOYEE BENEFITS ADMINISTRATOR procedure are i n the results section. HEPATIC FUNCTION PANEL Routine 10/08/2020 4:32 R esults for this AM EMPLOYEE BENEFITS ADMINISTRATOR procedure are i n the results section. BASIC METABOLIC PANEL Routine 10/08/2020 4:32 Re sults for this (7) AM EMPLOYEE BENEFITS ADMINISTRATOR procedure are i n the results section. US ABDOMEN COMPLETE [place] 10/07/2020 5:50 Resu lts for this PM EMPLOYEE BENEFITS ADMINISTRATOR procedure are i n the results section. SARS-COV2/RT-PCR ([facility] Routine 10/07/2020 10:57 R esults for this & REF LABS) AM EMPLOYEE BENEFITS ADMINISTRATOR procedure are i n the results section. CBC W/PLT COUNT & AUTO Routine 10/07/2020 10:32 R esults for this DIFFERENTIAL AM EMPLOYEE BENEFITS ADMINISTRATOR procedure are i n the results section. LIPASE Routine 10/07/2020 10:32 Results for this AM EMPLOYEE BENEFITS ADMINISTRATOR procedure are i n the results section. CBC W/PLT COUNT & AUTO Routine 10/07/2020 10:32 R esults for this DIFFERENTIAL AM EMPLOYEE BENEFITS ADMINISTRATOR procedure are i n the results section. LIPID PANEL Routine 10/07/2020 10:32 Results for this AM EMPLOYEE BENEFITS ADMINISTRATOR procedure are i n the results section. HEPATIC FUNCTION PANEL Routine 10/07/2020 10:32 R esults for this AM EMPLOYEE BENEFITS ADMINISTRATOR procedure are i n the results section. BASIC METABOLIC PANEL Routine 10/07/2020 10:32 Re sults for this (7) AM EMPLOYEE BENEFITS ADMINISTRATOR procedure are i n the results section. after 10/18/2019 Results Comprehensive metabolic panel (10/10/2020 8:24 AM EMPLOYEE BENEFITS ADMINISTRATOR) Protein, Total 7.2Comment: Specimen 6.0 - 8.[address] [facility] slightly hemolyzed gm/dL [facility] Albumin 3.9Comment: Specimen 3.5 - 5.0 [facility] slightly hemolyzed g/dL [facility] Alkaline 67 40 - 150 U/L [facility] Phosphatase [facility] Total Bilirubin 0.5Comment: Specimen 0.2 - 1.2 [facility] slightly hemolyzed mg/dL [facility] Sodium 136 136 - 145 [facility] meq/L [facility] Potassium 4.3Comment: Specimen 3.5 - 5.1 [facility] slightly hemolyzed meq/L [facility] Chloride 105 98 - 107 [facility] meq/L [facility] CO2 23 22 - 29 [facility] meq/L [facility] BUN 7 7 - 21 mg/dL [facility] Creatinine 0.74Comment: 0.57 - 1.[address] [facility] Specimen slightly mg/dL [facility] Glucose 104 70 - 105 [facility] mg/dL [facility] Calcium 9.1 8.4 - 10.2 [facility] mg/dL [facility] AST 74 (H)Comment: 5 - 34 U/L [facility] Specimen [facility] ALT 153 (H)Comment: 6 - 55 U/L [facility] LUKES Specimen [facility] EGFR Comment: [facility] INSUFFICIENT [facility] CLINICAL DATA TO MEDICAL CENTER CALCULATE ESTIMATED GFR. Specimen Blood Narrative Performed At [employer] Worker ID - AGUEDA C [facility] ICAL CENTER Performing Organization Address City/State/Zipcode Phone Number [facility] [address] [place] [address] CENTER CBC with platelet count + automated diff (10/09/2020 4:05 AM EMPLOYEE BENEFITS ADMINISTRATOR)Only the most recent of3 resultswithin the time period is included. Pathologist Sig nature WBC 5.5 3.5 - 10.5 [facility] RBC 4.63 3.93 - 5.22 [facility] M/[facility] Hemoglobin 12.2 11.2 - 15.7 [facility] GM/DL [facility] Hematocrit 37.7 34.1 - 44.9 % [facility] MCV 81.4 79.4 - 94.8 fL [facility] MCH 26.3 25.6 - 32.2 pg [facility] MCHC 32.4 32.2 - 35.5 [facility] RDW 12.8 11.7 - 14.4 % [facility] Platelets 266 150 - 450 K/CU [facility] MPV 9.9 9.4 - 12.3 fL [facility] nRBC 0 0 - 0 /100 WBC [facility] % Neutros 36 % [facility] % Lymphs 53 % [facility] % Monos 7 % [facility] % Eos 2 % [facility] % Baso 1 % [facility] # Neutros 2.00 1.56 - 6.13 [facility] # Lymphs 2.95 1.18 - 3.74 [facility] # Monos 0.41 (H) 0.24 - 0.36 [facility] K/L [facility] # Eos 0.13 0.04 - 0.36 [facility]L [facility] # Baso 0.03 0.01 - 0.08 [facility] K/L [facility] Immature 0 0 - 1 % [facility] Granulocytes-Relative [facility] Specimen Blood Performing Organization Address City/[facility]/Zipcode Phone Number [facility] [address] [place] [address] [place] Hepatic function panel (10/09/2020 4:05 AM EMPLOYEE BENEFITS ADMINISTRATOR)Only the most recent of3 results within the time period is included. Pathologist Sig nature Protein, Total 5.9 (L) 6.0 - 8.3 gm/dL [facility] Albumin 3.3 (L) 3.5 - 5.0 g/dL [facility] Total Bilirubin 0.4 0.2 - 1.2 mg/dL [facility] Bilirubin, Direct 0.2 0.1 - 0.5 mg/dL [facility] Alkaline Phosphatase 61 40 - 150 U/L [facility] AST 37 (H) 5 - 34 U/L [facility] ALT 132 (H) 6 - 55 U/L [facility] Specimen Blood Narrative Performed At [employer] Worker KRISHNA - [facility] Performing Organization Address City/[facility] Phone Number [facility] [address] [place] [address] CENTER Basic metabolic panel (10/09/2020 4:05 AM EMPLOYEE BENEFITS ADMINISTRATOR)Only the most recent of3 results within the time period is included. Sodium 137 136 - 145 [facility] meq/L [facility] Potassium 3.7 3.5 - 5.1 [facility] meq/L [facility] Chloride 107 98 - 107 meq/L [facility] CO2 25 22 - 29 meq/L [facility] BUN 4 (L) 7 - 21 mg/dL [facility] Creatinine 0.62 0.57 - 1.25 [facility] mg/dL [facility] Glucose 79 70 - 105 mg/dL [facility] Calcium 8.2 (L) 8.4 - 10.2 [facility] mg/dL [facility] EGFR Comment: INSUFFICIENT [facility] CLINICAL DATA TO [facility] CALCULATE ESTIMATED CENTER GFR. Specimen Blood Narrative Performed At [employer] Worker ID - EDASI [facility] Performing Organization Address City/[facility] Phone Number [facility] [address] [place] [address] [place] Hepatitis panel, acute (10/08/2020 2:30 PM EMPLOYEE BENEFITS ADMINISTRATOR) Pathologist Sig nature Hep A IgM Nonreactive Nonreactive [facility] Hep B C IgM Nonreactive Nonreactive [facility] Hepatitis C Ab Nonreactive Nonreactive [facility] HBsAg Screen Nonreactive Nonreactive [facility] Specimen Blood Narrative Performed At [employer] Worker ID - DB [facility] Performing Organization Address [facility] Hospitalcofl Phone Number [address] [address] CENTER US abdomen complete (10/07/2020 5:50 PM EMPLOYEE BENEFITS ADMINISTRATOR) Specimen Narrative Performed At FINAL REPORT [facility] [facility] U/S, ABDOMINAL, COMPLETE CLINICAL HISTORY: evaluate for choledoch olithiasis COMPARISON: None. TECHNIQUE: Real time grayscale and color Doppler images of the abdominal organs were obtained using a c urved transducer. FINDINGS: Pancreas: Partially visualized and unrem arkable. Liver: Normal in size and homogeneous in echogenicity. Focal liver lesions: None. Portal vein: Normal, hepatopetal flow. Bile ducts: Normal in caliber. Gallbladder: Normally distended with no gallstones, gallbladder wall thickening, or sonographic Elaine's sign . Kidneys: Right kidney is diminutive in a ppearance compared with the left, although the right kidney is somew hat poorly visualized related to habitus. Right renal cortex is at the lower limits of normal. Left renal cortex is normal. No hydronephrosi s. Spleen: Normal in size. Ascites: None in the upper abdomen. Visualized aorta and IVC: Unremarkable w here visualized, IVC and hepatic veins not well visualized. MEASUREMENTS: Liver: 15.1 cm Common Duct: 4.5 mm Right Kidney: 7.7 cm Left Kidney: 11.0 cm Spleen: 11.0 cm Maximum Diameter Aorta: 1.6 cm IMPRESSION: Right kidney is diminutive compared with the left. Otherwise normal abdominal ultrasound. Signed: Tnaa Augustin MD Report Verified Date/Time: 10/07/2020 22:53:23 Reading Location: [facility] [address] [place] [address] Reading Room Procedure Note Interface, External Ris In - 10/07/2020 10:55 PM EMPLOYEE BENEFITS ADMINISTRATOR FINAL REPORT U/S, ABDOMINAL, COMPLETE CLINICAL HISTORY: evaluate for choledoch olithiasis COMPARISON: None. TECHNIQUE: Real time grayscale and color Doppler images of the abdominal organs were obtained using a c urved transducer. FINDINGS: Pancreas: Partially visualized and unrem arkable. Liver: Normal in size and homogeneous in echogenicity. Focal liver lesions: None. Portal vein: Normal, hepatopetal flow. Bile ducts: Normal in caliber. Gallbladder: Normally distended with no gallstones, gallbladder wall thickening, or sonographic Elaine's sign . Kidneys: Right kidney is diminutive in a ppearance compared with the left, although the right kidney is somew hat poorly visualized related to habitus. Right renal cortex is at the lower limits of normal. Left renal cortex is normal. No hydronephrosi s. Spleen: Normal in size. Ascites: None in the upper abdomen. Visualized aorta and IVC: Unremarkable w here visualized, IVC and hepatic veins not well visualized. MEASUREMENTS: Liver: 15.1 cm Common Duct: 4.5 mm Right Kidney: 7.7 cm Left Kidney: 11.0 cm Spleen: 11.0 cm Maximum Diameter Aorta: 1.6 cm IMPRESSION: Right kidney is diminutive compared with the left. Otherwise normal abdominal ultrasound. Signed: Tana Augustin MD Report Verified Date/Time: 10/07/2020 2 2:53:23 Reading Location: [facility] [id number] [facility] Reading Room Performing Organization Address City/State/Zipcode Phone Number [facility] SARS-CoV2/RT-PCR (Asymptomatic ONLY) (10/07/2020 10:57 AM EMPLOYEE BENEFITS ADMINISTRATOR) SARS-COV2/RT-PCR Negative Not Detected, [facility] Negative, See [facility] external report CENTER for linked test SARS-COV-2 [facility] PERFORMING LAB [facility] Specimen Other - Nasopharyngeal wall structure (b ata structure) Narrative Performed At Negative result for this test determines that [facility] SARS-CoV-2 RNA was not present in the specimen above the Limit of Detection (LOD). However, Negative results do not preclude SARS-CoV-2 infection and should not be used as the sole basis for treatment or patient management decisions. Negative results must be combined with clinical observations, patient history, and epidemiological information. A false negative result may occur if a specimen is improperly collected, transported or handled. A false negative result should be considered if patient's recent exposures or clinical presentation indicate that COVID-19 (SARS-CoV-2) is likely and diagnostic tests for other causes of illness are negative. Re-testing should be considered in cases of suspected false negatives. The limit of detection for this assay is 800 copies/mL. This SARS CoV-2 test is a real-time RT-PCR test intended for the qualitative detection of nucleic acid from SARS-CoV-2 in a nasopharyngeal swab specimen collected from individuals suspected of COVID-19 by their healthcare provider. This test has not been Food and Drug Administration (FDA) cleared or approved. This is a modified version of an approved Emergency Use Authorization (EUA) and is in the process of review by the FDA. Once authorized by the FDA, the issued EUA will be effective until the declaration that circumstances exist justifying the authorization of the emergency use of in vitro diagnostic tests for detection and/or diagnosis of COVID-19 is terminated under Section 564(b)(2) of the Act or the EUA is revoked under Section 564(g) of the Act. Fact Sheet for Healthcare Providers: https://www.[employer]/sites/default/files/pro duct/documents/Fact_Sheet_HC_Providers_Lyra_SA RS-CoV-2.pdf Fact Sheet for Healthcare Patients: https://www.[employer]/sites/default/files/pro duct/documents/Fact_Sheet_Patients_Lyra_SARS-C oV-2.pdf Performing Laboratory: [address] [address] Performing Organization Address City/[facility] [place] [address] CENTER Lipase (10/07/2020 10:32 AM EMPLOYEE BENEFITS ADMINISTRATOR) Pathologist Sig nature Lipase >1200 (H) 8 - 78 U/L [facility] Specimen Blood Narrative Performed At [employer] Worker ID - AGUEDA Tee [facility] Performing Organization Address [facility] Phone Number [address] [address] [place] Lipid panel (10/07/2020 10:32 AM EMPLOYEE BENEFITS ADMINISTRATOR) Pathologist Sig nature Triglycerides 77 mg/dL [facility] Cholesterol 124 mg/dL [facility] HDL 43 mg/dL [facility] LDL Calculated 66 mg/dL [facility] Specimen Blood Narrative Performed At Triglyceride Reference Range: [facility] Low Risk <150 Borderline 150-199 High Risk 200-499 Very High Risk >=500 Cholesterol Reference Range: Low Risk <200 Borderline 200-239 High Risk >240 HDL Cholesterol Reference Range: Low Risk >=60 High Risk <40 LDL Cholesterol Reference Range: Optimal <100 Near Optimal 100-129 Borderline 130-159 High 160-189 Very High >=190 [employer] Worker KRISHNA - AGUEDA Tee Performing Organization Address [facility]code Phone Number [facility] [address] [place], [place] [phone] CENTER after 10/18/2019 Advance Directives For more information, please contact: [phone] Code Status Date Activated Date Inactivated Comments Full Code 10/07/2020 9:52 AM 10/10/2020 1:19 PM This code status was determined by: Patient
--- OUTSIDE RECORDS SUMMARY | 2020-10-18 21:21 | XMS REPORT | Continuity of Care Document ---
:1985 Author Organization [facility] t Address [address] [place] [address] Care Team Providers Name Role Phone Deon Guerra MD Attending Clinician [phone] Mary Gonzalez MD Attending Clinician Albert Eddy MD Attending Clinician EMILY Attending Clinician Unavailable SHERLY GONZALEZ Admitting Clinician Unavailable Payers Payer Name Policy Type Policy Number Effective Date Expiration Date S ource Problems Condition Condition Condition Status Onset Resolution Last Treating Co mments Source Name Details Category Date Date Treatment Clinician Date Pancreatit Pancreatit Disease Active 2019-[address] is, acute is, acute 12-07 [place] [facility] Allergies, Adverse Reactions, Alerts Allergy Allergy Status Severity Reaction(s) Onset Inactive Treating Comm ents Source Name Type Date Date Clinician No Known DA Active U [facility] 08-05 [facility] Social History Social Habit Start Date Stop Date Quantity Comments Source Sex Assigned At [facility] Medications Ordered Filled Start Stop Current Ordering Indication Dosage Frequency Signature Comments Components Source Medication Medication Date Date Medication? Clinician (SIG) Name Name omeprazole 2019-11- Yes 20mg QD Take 1 [facility]3] (PriLOSEC) 12-10 [facility] - 20 MG 00:00: 23:59 (20 mg Medical capsule 00 :00 total) by Center mouth daily. Vital Signs Vital Name Observation Time Observation Value Comments Source Systolic blood 2020-10-10 07:53:00 109 mm[Hg] [facility] Diastolic blood 2020-10-10 07:53:00 63 mm[Hg] [facility] Heart rate 2020-10-10 07:53:00 69 /min [facility] Body temperature 2020-10-10 07:53:00 36.28 Yvrose [facility] Respiratory rate 2020-10-10 07:53:00 18 /min [facility] Oxygen saturation in 2020-10-10 07:53:00 98 /min [facility] Arterial blood by Medical Ce nter Pulse oximetry Body height 2020-10-07 09:39:00 160 cm [facility] Body weight 2020-10-07 09:39:00 113.399 kg [facility] BMI 2020-10-07 09:39:00 44.29 kg/m2 [facility] Procedures Procedure Date / Time Performed Performing Clinician Sirisha mendez COMPREHENSIVE METABOLIC 2020-10-10 08:24:00 Mychal Eddy [facility] BASIC METABOLIC PANEL (7) 2020-10-09 04:05:00 Mary Gonzalez [facility] HEPATIC FUNCTION PANEL 2020-10-09 04:05:00 Mary Gonzalez CH I [facility] CBC W/PLT COUNT & AUTO 2020-10-09 04:05:00 Mary Gonzalez CH I [facility] HEPATITIS PANEL, ACUTE 2020-10-08 14:30:00 Mychal Eddy [facility] BASIC METABOLIC PANEL (7) 2020-10-08 04:32:00 Mary Gonzalez [facility] HEPATIC FUNCTION PANEL 2020-10-08 04:32:00 Gonzalez, Mary Sherly [facility] CBC W/PLT COUNT & AUTO 2020-10-08 04:32:00 Mary Gonzalez [facility] US ABDOMEN COMPLETE 2020-10-07 17:50:00 Mary Gonzalez [facility] SARS-COV2/RT-PCR ([facility] & 2020-10-07 10:57[facility]00 [facility] BASIC METABOLIC PANEL (7) 2020-10-07 10:32:00 Mary Gonzalez [facility] HEPATIC FUNCTION PANEL 2020-10-07 10:32:00 Mary Gonzalez Sherly [facility] LIPID PANEL 2020-10-07 10:32:00 Mary Gonzalez [facility] LIPASE 2020-10-07 [facility] 2020-10-07 10:32:00 Mary Gonzalez [facility] Plan of Care Planned Activity Planned Date Details Comments Source Future Scheduled 2023-10-07 [facility] (procedure) [code = [facility] 13863648] Future Scheduled 2020-07-[address] [facility] - Test 00:00:00 (#1) [code = [facility] INFLUENZA VACCINE (#1)] Future Scheduled 2008-02-02 Screening for [facility] - Test 00:00:00 malignant neoplasm Medical C enter of cervix (procedure) [code = 742511832] Results Test Description Test Time Test Comments Results Result Comments Source Comprehensive metabolic panel 2020-10-10 08:51:00 Test Item Value Reference Range Interpretation Comme nts Protein, Total (test code 7.2 6.0- 8.3 gm/dL Specimen slightly = 2885-2) hemolyzed Albumin (test code = 3.9 g/dL 3.5-5 Specime n slightly 16587-8) hemolyzed Alkaline Phosphatase (test 67 U/L 40-150 code = 6768-6) Total Bilirubin (test code 0.5 mg/dL 0.2-1.2 S pecimen slightly = 1974-2) hemolyzed Sodium (test code = 136 meq/L 457-224 0755-2) Potassium (test code = 4.3 meq/L 3.5-5.1 Speci men slightly 2823-3) hemolyzed Chloride (test code = 105 meq/L 98-107 2075-0) CO2 (test code = 2028-9) 23 meq/L 22-29 BUN (test code = 3094-0) 7 mg/dL 7-21 Creatinine (test code = 0.74 mg/dL 0.57-1.25 Spec imen slightly 2160-0) hemolyzed Glucose (test code = 104 mg/dL 70-105 2345-7) Calcium (test code = 9.1 mg/dL 8.4-10.2 80194-6) AST (test code = 1920-8) 74 U/L 5-34 H Spe cimen slightly hemolyzed ALT (test code = 1742-6) 153 U/L 6-55 H Spe cimen slightly hemolyzed EGFR (test code = 69035-0) I NSUFFICIENT CLINICAL DATA TO CALCULA TE ESTIMATED GFR. RICARDO (test code = RICARDO) [employer] Operator ID - AGUEDA C Lab Interpretation (test Abnormal code = 88541-4) [facility] [id number] 08:51:00 Test Item Value Reference Range Interpretation Comments TOTAL PROTEIN 7.2 gm/dL 6.0-8.3 Specimen sligh tly (BEAKER) (test code = hemoly zed 770) ALBUMIN (BEAKER) 3.9 g/dL 3.5-5.0 Specimen sl ightly (test code = 1145) hemolyzed ALKALINE PHOSPHATASE 67 U/L 40-150 (BEAKER) (test code = 346) BILIRUBIN TOTAL 0.5 mg/dL 0.2-1.2 Specimen sli ghtly (BEAKER) (test code = hemoly zed 377) SODIUM (BEAKER) (test 136 meq/L 136-145 code = 381) POTASSIUM (BEAKER) 4.3 meq/L 3.5-5.1 Specimen slightly (test code = 379) hemolyzed CHLORIDE (BEAKER) 105 meq/L 98-107 (test code = 382) CO2 (BEAKER) (test 23 meq/L 22-29 code = 355) BLOOD UREA NITROGEN 7 mg/dL 7-21 (BEAKER) (test code = 354) CREATININE (BEAKER) 0.74 mg/dL 0.57-1.25 Specimen slightly (test code = 358) hemolyzed GLUCOSE RANDOM 104 mg/dL 70-105 (BEAKER) (test code = 652) CALCIUM (BEAKER) 9.1 mg/dL 8.4-10.2 (test code = 697) AST (SGOT) (BEAKER) 74 U/L 5-34 H Specimen slightly (test code = 353) hemolyzed ALT (SGPT) (BEAKER) 153 U/L 6-55 H Specimen slightly (test code = 347) hemolyzed EGFR (BEAKER) (test INSUFFIC IENT CLINICAL code = 1092) DATA TO CALCULA TE ESTIMATED GFR. [employer] Operator ID - AGUEDA [facility] metabolic [id number] 04:58:00 Test Item Value Reference Range Interpretation Comments Sodium (test code = 137 meq/L 013-636 3445-2) Potassium (test code 3.7 meq/L 3.5-5.1 = 2823-3) Chloride (test code = 107 meq/L 98-107 2075-0) CO2 (test code = 25 meq/L 22-29 2028-9) BUN (test code = 4 mg/dL 7-21 L 3094-0) Creatinine (test code 0.62 mg/dL 0.57-1.25 = 2160-0) Glucose (test code = 79 mg/dL 70-105 2345-7) Calcium (test code = 8.2 mg/dL 8.4-10.2 L 70818-3) EGFR (test code = [place] [address]-5) CLINICAL DATA T O CALCULATE ESTIMATED GFR. RICARDO (test code = RICARDO) [employer] Operator ID - EDASI Lab Interpretation Abnormal (test code = 67679-5) [facility] METABOLIC [id number] 04:58:00 Test Item Value Reference Range Interpretation Comments SODIUM (BEAKER) (test 137 meq/L 136-145 code = 381) POTASSIUM (BEAKER) 3.7 meq/L 3.5-5.1 (test code = 379) CHLORIDE (BEAKER) 107 meq/L 98-107 (test code = 382) CO2 (BEAKER) (test 25 meq/L 22-29 code = 355) BLOOD UREA NITROGEN 4 mg/dL 7-21 L (BEAKER) (test code = 354) CREATININE (BEAKER) 0.62 mg/dL 0.57-1.25 (test code = 358) GLUCOSE RANDOM 79 mg/dL 70-105 (BEAKER) (test code = 652) CALCIUM (BEAKER) 8.2 mg/dL 8.4-10.2 L (test code = 697) EGFR (BEAKER) (test INSUFFIC IENT CLINICAL code = 1092) DATA TO CALCULA TE ESTIMATED GFR. [employer] Operator ID - EDASIHepatic function [id number] 04:50:00 Test Item Value Reference Range Interpretation Comments Protein, Total (test code 5.9 6.0- 8.3 gm/dL L = 2885-2) Albumin (test code = 3.3 g/dL 3.5-5 L 54616-1) Total Bilirubin (test code 0.4 mg/dL 0.2-1.2 = 1975-2) Bilirubin, Direct (test 0.2 mg/dL 0.1-0.5 code = 1968-7) Alkaline Phosphatase (test 61 U/L 40-150 code = 6768-6) AST (test code = 1920-8) 37 U/L 5-34 H ALT (test code = 1742-6) 132 U/L 6-55 H RICARDO (test code = RICARDO) [employer] Operator ID - EDASI Lab Interpretation (test Abnormal code = 07732-5) [facility] [id number] 04:50:00 Test Item Value Reference Range Interpretation Comments TOTAL PROTEIN (BEAKER) (test code = 5.9 gm/dL 6.0-8.3 L 770) ALBUMIN (BEAKER) (test code = 1145) 3.3 g/dL 3.5-5.0 L BILIRUBIN TOTAL (BEAKER) (test code 0.4 mg/dL 0.2-1.2 = 377) BILIRUBIN DIRECT (BEAKER) (test 0.2 mg/dL 0.1-0.5 code = 706) ALKALINE PHOSPHATASE (BEAKER) (test 61 U/L 40-150 code = 346) AST (SGOT) (BEAKER) (test code = 37 U/L 5-34 H 353) ALT (SGPT) (BEAKER) (test code = 132 U/L 6-55 H 347) [employer] Operator ID - EDASICBC with platelet count + automated [id number] 04:41:00 Test Item Value Reference Range Interpretation Comments WBC (test code = 6690-2) 5.5 3.5- 10.5 K/L RBC (test code = 789-8) 4.63 3.93- 5.22 M/L MCHC (test code = 786-4) 32.4 32.2- 35.5 GM/DL Hematocrit (test code = 4544-3) 37.7 % 34.1-44.9 MCV (test code = 787-2) 81.4 fL 79.4-94.8 MCH (test code = 785-6) 26.3 pg 25.6-32.2 RDW (test code = 788-0) 12.8 % 11.7-14.4 Platelets (test code = 777-3) 266 150- 450 K/CU MM MPV (test code = 85146-6) 9.9 fL 9.4-12.3 nRBC (test code = 413) 0 0- 0 /100 WBC % Neutros (test code = 429) 36 % % Lymphs (test code = 430) 53 % % Monos (test code = 431) 7 % % Eos (test code = 432) 2 % % Baso (test code = 437) 1 % # Neutros (test code = 670) 2.00 1.56- 6.13 K/L # Lymphs (test code = 414) 2.95 1.18- 3.74 K/L # Monos (test code = 415) 0.41 0.24- 0.36 K/L H # Eos (test code = 416) 0.13 0.04- 0.36 K/L # Baso (test code = 417) 0.03 0.01- 0.08 K/L Immature Granulocytes-Relative 0 % 0-1 (test code = 2801) Lab Interpretation (test code = Abnormal 39976-4) [facility] & AUTO [id number] 04:41:00 Test Item Value Reference Range Interpretation Comments WHITE BLOOD CELL COUNT (BEAKER) 5.5 K/ L 3.5-10.5 (test code = 775) RED BLOOD CELL COUNT (BEAKER) 4.63 M/ L 3.93-5.22 (test code = 761) HEMOGLOBIN (BEAKER) (test code = 12.2 GM/DL 11.2-15.7 410) HEMATOCRIT (BEAKER) (test code = 37.7 % 34.1-44.9 411) MEAN CORPUSCULAR VOLUME (BEAKER) 81.4 fL 79.4-94.8 (test code = 753) MEAN CORPUSCULAR HEMOGLOBIN 26.3 pg 25.6-32.2 (BEAKER) (test code = 751) MEAN CORPUSCULAR HEMOGLOBIN CONC 32.4 GM/DL 32.2-35.5 (BEAKER) (test code = 752) RED CELL DISTRIBUTION WIDTH 12.8 % 11.7-14.4 (BEAKER) (test code = 412) PLATELET COUNT (BEAKER) (test 266 K/CU MM 150-450 code = 756) MEAN PLATELET VOLUME (BEAKER) 9.9 fL 9.4-12.3 (test code = 754) NUCLEATED RED BLOOD CELLS 0 /100 WBC 0-0 (BEAKER) (test code = 413) NEUTROPHILS RELATIVE PERCENT 36 % (BEAKER) (test code = 429) LYMPHOCYTES RELATIVE PERCENT 53 % (BEAKER) (test code = 430) MONOCYTES RELATIVE PERCENT 7 % (BEAKER) (test code = 431) EOSINOPHILS RELATIVE PERCENT 2 % (BEAKER) (test code = 432) BASOPHILS RELATIVE PERCENT 1 % (BEAKER) (test code = 437) NEUTROPHILS ABSOLUTE COUNT 2.00 K/ L 1.56-6.13 (BEAKER) (test code = 670) LYMPHOCYTES ABSOLUTE COUNT 2.95 K/ L 1.18-3.74 (BEAKER) (test code = 414) MONOCYTES ABSOLUTE COUNT (BEAKER) 0.41 K/ L 0.24-0.36 H (test code = 415) EOSINOPHILS ABSOLUTE COUNT 0.13 K/ L 0.04-0.36 (BEAKER) (test code = 416) BASOPHILS ABSOLUTE COUNT (BEAKER) 0.03 K/ L 0.01-0.08 (test code = 417) IMMATURE GRANULOCYTES-RELATIVE 0 % 0-1 PERCENT (BEAKER) (test code = 2801) Hepatitis panel, [id number] 17:25:00 Test Item Value Reference Range Interpretation Comments Hep A IgM (test code = Nonreactive Nonreactive 96590-3) Hep B C IgM (test code = Nonreactive Nonreactive 63586-8) Hepatitis C Ab (test code = Nonreactive Nonreactive 91707-7) HBsAg Screen (test code = Nonreactive Nonreactive 5195-3) RICARDO (test code = RICARDO) [employer] Operator ID - DB Lab Interpretation (test Normal code = 13470-0) [facility], [id number] 17:25:00 Test Item Value Reference Range Interpretation Comments HEPATITIS A IGM ANTIBODY (BEAKER) Nonreactive Nonreactive (test code = 498) HEPATITIS B CORE IGM ANTIBODY Nonreactive Nonreactive (BEAKER) (test code = 645) HEPATITIS C ANTIBODY (BEAKER) Nonreactive Nonreactive (test code = 367) HEPATITIS B SURFACE ANTIGEN (2) Nonreactive Nonreactive (BEAKER) (test code = 2585) [employer] Operator ID - DBBASIC METABOLIC [id number] 05:43:00 Test Item Value Reference Range Interpretation Comments SODIUM (BEAKER) (test 137 meq/L 136-145 code = 381) POTASSIUM (BEAKER) 3.5 meq/L 3.5-5.1 (test code = 379) CHLORIDE (BEAKER) 106 meq/L 98-107 (test code = 382) CO2 (BEAKER) (test 24 meq/L 22-29 code = 355) BLOOD UREA NITROGEN 5 mg/dL 7-21 L (BEAKER) (test code = 354) CREATININE (BEAKER) 0.69 mg/dL 0.57-1.25 (test code = 358) GLUCOSE RANDOM 86 mg/dL 70-105 (BEAKER) (test code = 652) CALCIUM (BEAKER) 7.9 mg/dL 8.4-10.2 L (test code = 697) EGFR (BEAKER) (test INSUFFIC IENT CLINICAL code = 1092) DATA TO CALCULA TE ESTIMATED GFR. [employer] Operator ID - PIAYA LHEPATIC FUNCTION [id number] 05:41:00 Test Item Value Reference Range Interpretation Comments TOTAL PROTEIN (BEAKER) (test code = 5.8 gm/dL 6.0-8.3 L 770) ALBUMIN (BEAKER) (test code = 1145) 3.4 g/dL 3.5-5.0 L BILIRUBIN TOTAL (BEAKER) (test code 0.5 mg/dL 0.2-1.2 = 377) BILIRUBIN DIRECT (BEAKER) (test 0.3 mg/dL 0.1-0.5 code = 706) ALKALINE PHOSPHATASE (BEAKER) (test 62 U/L 40-150 code = 346) AST (SGOT) (BEAKER) (test code = 70 U/L 5-34 H 353) ALT (SGPT) (BEAKER) (test code = 185 U/L 6-55 H 347) [employer] Operator ID - PIAYA LCBC W/PLT COUNT & AUTO [id number] 05:21:00 Test Item Value Reference Range Interpretation Comments WHITE BLOOD CELL COUNT (BEAKER) 6.0 K/ L 3.5-10.5 (test code = 775) RED BLOOD CELL COUNT (BEAKER) 4.44 M/ L 3.93-5.22 (test code = 761) HEMOGLOBIN (BEAKER) (test code = 11.6 GM/DL 11.2-15.7 410) HEMATOCRIT (BEAKER) (test code = 36.6 % 34.1-44.9 411) MEAN CORPUSCULAR VOLUME (BEAKER) 82.4 fL 79.4-94.8 (test code = 753) MEAN CORPUSCULAR HEMOGLOBIN 26.1 pg 25.6-32.2 (BEAKER) (test code = 751) MEAN CORPUSCULAR HEMOGLOBIN CONC 31.7 GM/DL 32.2-35.5 L (BEAKER) (test code = 752) RED CELL DISTRIBUTION WIDTH 13.0 % 11.7-14.4 (BEAKER) (test code = 412) PLATELET COUNT (BEAKER) (test 252 K/CU MM 150-450 code = 756) MEAN PLATELET VOLUME (BEAKER) 10.0 fL 9.4-12.3 (test code = 754) NUCLEATED RED BLOOD CELLS 0 /100 WBC 0-0 (BEAKER) (test code = 413) NEUTROPHILS RELATIVE PERCENT 45 % (BEAKER) (test code = 429) LYMPHOCYTES RELATIVE PERCENT 44 % (BEAKER) (test code = 430) MONOCYTES RELATIVE PERCENT 8 % (BEAKER) (test code = 431) EOSINOPHILS RELATIVE PERCENT 3 % (BEAKER) (test code = 432) BASOPHILS RELATIVE PERCENT 1 % (BEAKER) (test code = 437) NEUTROPHILS ABSOLUTE COUNT 2.70 K/ L 1.56-6.13 (BEAKER) (test code = 670) LYMPHOCYTES ABSOLUTE COUNT 2.63 K/ L 1.18-3.74 (BEAKER) (test code = 414) MONOCYTES ABSOLUTE COUNT (BEAKER) 0.46 K/ L 0.24-0.36 H (test code = 415) EOSINOPHILS ABSOLUTE COUNT 0.16 K/ L 0.04-0.36 (BEAKER) (test code = 416) BASOPHILS ABSOLUTE COUNT (BEAKER) 0.03 K/ L 0.01-0.08 (test code = 417) IMMATURE GRANULOCYTES-RELATIVE 0 % 0-1 PERCENT (BEAKER) (test code = 2801) U/S, ABDOMINAL, [id number] 22:53:00Reason for exam:->[facility] : 1985 Sex: FFINAL REPORT U/S, ABDOMINAL, COMPLETE CLINICAL HISTORY: evaluate for choledocholithiasis COMPARISON: None. TECHNIQUE: Real time grayscale and color Doppler images of the abdominal organs were obtained using a curved transducer. FINDINGS: Pancreas: Partially visualized and unremarkable. Liver: Normal in size and homogeneous in echogenicity. Focal liver lesions: None. Portal vein: Normal, hepatopetal flow. Bile ducts: Normal in caliber. Gallbladder: Normally distended with no gallstones, gallbladder wall thickening, or sonographic Elaine's sign. Kidneys: Right kidney isdiminutive in appearance compared with the left, although the right kidney is somewhat poorly visualized related to habitus. Right renal cortex is at the lower limits of normal. Left renal cortex is normal. No hydronephrosis. Spleen: Normal in size. Ascites: None in the upper abdomen. Visualized aortaand IVC: Unremarkable where visualized, IVC and hepatic veins not well visualized. MEASUREMENTS:Liver: 15.1 cm Common Duct: 4.5 mm Right Kidney: 7.7 cm Left Kidney: 11.0 cmSpleen: 11.0 cm Maximum Diameter Aorta: 1.6 cm IMPRESSION: Right kidney is diminutive compared with the left. Otherwise normal abdominal ultrasound. Signed: Tana Augustin Verified Date/Time: 10/07/2020 22:53:23 Reading Location: [address] Transitional Reading Room US abdomen [id number] 22:53:00Interface, External Ris In - 10/07/2020 10:55 PM CSTFINAL REPORT U/S, ABDOMINAL, COMPLETE CLINICAL HISTORY: evaluate for choledocholithiasis COMPARISON: None. TECHNIQUE: Real time grayscale and color Doppler images of the abdominal organs were obtained using a curved transducer. FINDINGS: Pancreas: Partially visualized and unremarkable. Liver: Normal in size and homogeneous inechogenicity. Focal liver lesions: None. Portal vein: Normal, hepatopetal flow. Bile ducts: Normalin caliber. Gallbladder: Normally distended with no gallstones, gallbladder wall thickening, or sonographic Elaine's sign. Kidneys: Right kidney is diminutive in appearance compared with the left, although the right kidney is somewhat poorly visualized related to habitus. Right renal cortex is at the lower limits of normal. Left renal cortex is normal. No hydronephrosis. Spleen: Normal in size. Ascites: None in the upper abdomen. Visualized aorta and IVC: Unremarkable where visualized, IVC and hepatic veins not well visualized. MEASUREMENTS:Liver: 15.1 cm Common Duct: 4.5 mm Right Kidney: 7.7 cm Left Kidney: 11.0 cmSpleen: 11.0 cm Maximum Diameter Aorta: 1.6 cm IMPRESSION: Right kidney is diminutive compared with the left. Otherwise normal abdominal ultrasound. Signed: Tana Augustin Verifi ed Date/Time: 10/07/2020 22:53:23 Reading Location: [facility] B1 C013T Transitional Reading [facility] 2020-10-07 20:18:00 Test Item Value Reference Range Interpretation Comments SARS-COV2/RT-PCR Negative Not Detected, (test code = Negative, See 30239-3) external report for linked test SARS-COV-2 [facility] PERFORMING LAB (test code = 01245-1) RICARDO (test code = Negative result for this RICARDO) test determines that SARS-CoV-2 RNA was not present in the [...] of the Act. Fact Sheet for Healthcare Providers:https://www.Flirtic.com.com/sites/default/f mariah/product/documents/F act_Sheet_HC_Providers_L jzl_GCST-NiI-1.pdf Fact Sheet for Healthcare Patients:https://www.GuardiCore.com/sites/default/fi les/product/documents/Fa ct_Sheet_Patients_Lyra_S ARS-CoV-2.pdf Performing Laboratory:[facility] [place] [address] [facility] & REF LABS)2020-10-07 20:18:00 Test Item Value Reference Range Interpretation Comments SARS-COV2/RT-PCR (test Negative Not Detected, Negative, code = 9920326) See external report for linked test SARS-COV-2 PERFORMING LAB [facility] (test code = 6208910) Negative result for this test determines that SARS-CoV-2 RNA was not present in the specimen above the Limit of Detection (LOD). However, Negative results do not preclude SARS-CoV-2 infection and should not be used as the sole basis for treatment or patient management decisions. Negative results mustbe combined with clinical observations, patient history, and epidemiological information. A false negative result may occur if a specimen is improperly collected, transported or handled. A false negative result should be considered if patient's recent exposures or clinical presentation indicate that COVID-19 (SARS-CoV-2) is likely and diagnostic tests for other causes of illness are negative. Re-testing should be considered in cases of suspected false negatives.The limit of detection for this assay is 800 copies/mL.This SARS CoV-2 test is a real-time RT-PCR test intended for the qualitative detection of nucleic acid from SARS-CoV-2 in a nasopharyngeal swab specimen collected from individuals susp ected of COVID-19 by their healthcare provider.This test has not been Food and Drug [...] is revoked under Section 564(g) of the Act.Fact Sheet for Healthcare Providers:https://www.Kuli Kuli/sites/default/files/product/documents/Fact_Jarad lasti_ON_Ybwdbcsxc_Hwjb_IWPJ-MxI-1.pdfFact Sheet for Healthcare Patients:https://www.Kuli Kuli/sites/default/files/product/ documents/Gajp_Kdifw_Ihayaftk_Vfxa_TGVA-IbX-5.pdfPerforming Laboratory:[facility], [place] [id number] 11:18:00 Test Item Value Reference Range Interpretation Comments Lipase (test code = >1200 8-78 H 3040-3) RICARDO (test code = RICARDO) [employer] Machine Operator ID - AGUEDA C Lab Interpretation (test Abnormal code = 31514-1) [facility]2020-[facility] 11:18:00 Test Item Value Reference Range Interpretation Comments LIPASE (BEAKER) (test code = 749) > U/L 8-78 H [employer] Machine Operator ID - AGUEDA CBASIC METABOLIC [id number] 11:16:00 Test Item Value Reference Range Interpretation Comments SODIUM (BEAKER) (test 138 meq/L 136-145 code = 381) POTASSIUM (BEAKER) 4.0 meq/L 3.5-5.1 (test code = 379) CHLORIDE (BEAKER) 109 meq/L 98-107 H (test code = 382) CO2 (BEAKER) (test 23 meq/L 22-29 code = 355) BLOOD UREA NITROGEN 6 mg/dL 7-21 L (BEAKER) (test code = 354) CREATININE (BEAKER) 0.70 mg/dL 0.57-1.25 (test code = 358) GLUCOSE RANDOM 87 mg/dL 70-105 (BEAKER) (test code = 652) CALCIUM (BEAKER) 8.2 mg/dL 8.4-10.2 L (test code = 697) EGFR (BEAKER) (test INSUFFIC IENT CLINICAL code = 1092) DATA TO CALCULA TE ESTIMATED GFR. [employer] Machine Operator ID - AGUEDA CLipid [id number] 11:13:00 Test Item Value Reference Range Interpretation Comments Triglycerides (test 77 mg/dL code = 2571-8) Cholesterol (test code 124 mg/dL = 2093-3) HDL (test code = 43 mg/dL 2085-07) LDL Calculated (test 66 mg/dL code = 51871-9) RICARDO (test code = RICARDO) Triglyceride Reference Range: Low Risk <150 Borderline 150-199 High Risk 200-499 Very High Risk >=500 Cholesterol Reference Range: Low Risk <200 Borderline 200-239 High Risk >240 HDL Cholesterol Reference Range: Low Risk >=60 High Risk <40 LDL Cholesterol Reference Range: Optimal <100 Near Optimal 100-129 Borderline 130-159 High 160-189 Very High >=190 [employer] Machine Operator ID - AGUEDA Tee [facility] [id number] 11:13:00 Test Item Value Reference Range Interpretation Comments TRIGLYCERIDES (BEAKER) (test code = 77 mg/dL 540) CHOLESTEROL (BEAKER) (test code = 124 mg/dL 631) HDL CHOLESTEROL (BEAKER) (test code 43 mg/dL = 976) LDL CHOLESTEROL CALCULATED (BEAKER) 66 mg/dL (test code = 633) Triglyceride Reference Range: Low Risk <150 Borderline 150-199 High Risk 200-499 Very High Risk >=500Cholesterol Reference Range: Low Risk <200 Borderline 200-239 High Risk >240HDL Cholesterol Reference Range: Low Risk >=60 High Risk <40LDL Cholesterol Reference Range: Optimal <100 Near Optimal 100-129 Borderline 130-159 High 160-189 Very High >=190 [employer] Operator ID Robert ROMEO [id number] FUNCTION [id number] 11:13:00 Test Item Value Reference Range Interpretation Comments TOTAL PROTEIN (BEAKER) (test code = 7.2 gm/dL 6.0-8.3 770) ALBUMIN (BEAKER) (test code = 1145) 4.1 g/dL 3.5-5.0 BILIRUBIN TOTAL (BEAKER) (test code 0.7 mg/dL 0.2-1.2 = 377) BILIRUBIN DIRECT (BEAKER) (test 0.4 mg/dL 0.1-0.5 code = 706) ALKALINE PHOSPHATASE (BEAKER) (test 79 U/L 40-150 code = 346) AST (SGOT) (BEAKER) (test code = 195 U/L 5-34 H 353) ALT (SGPT) (BEAKER) (test code = 309 U/L 6-55 H 347) [employer] Operator ID - [id number] CCBC W/PLT COUNT & AUTO [id number] 10:45:00 Test Item Value Reference Range Interpretation Comments WHITE BLOOD CELL COUNT (BEAKER) 7.3 K/ L 3.5-10.5 (test code = 775) RED BLOOD CELL COUNT (BEAKER) 5.18 M/ L 3.93-5.22 (test code = 761) HEMOGLOBIN (BEAKER) (test code = 13.5 GM/DL 11.2-15.7 410) HEMATOCRIT (BEAKER) (test code = 42.7 % 34.1-44.9 411) MEAN CORPUSCULAR VOLUME (BEAKER) 82.4 fL 79.4-94.8 (test code = 753) MEAN CORPUSCULAR HEMOGLOBIN 26.1 pg 25.6-32.2 (BEAKER) (test code = 751) MEAN CORPUSCULAR HEMOGLOBIN CONC 31.6 GM/DL 32.2-35.5 L (BEAKER) (test code = 752) RED CELL DISTRIBUTION WIDTH 12.9 % 11.7-14.4 (BEAKER) (test code = 412) PLATELET COUNT (BEAKER) (test 308 K/CU MM 150-450 code = 756) MEAN PLATELET VOLUME (BEAKER) 9.9 fL 9.4-12.3 (test code = 754) NUCLEATED RED BLOOD CELLS 0 /100 WBC 0-0 (BEAKER) (test code = 413) NEUTROPHILS RELATIVE PERCENT 55 % (BEAKER) (test code = 429) LYMPHOCYTES RELATIVE PERCENT 35 % (BEAKER) (test code = 430) MONOCYTES RELATIVE PERCENT 8 % (BEAKER) (test code = 431) EOSINOPHILS RELATIVE PERCENT 2 % (BEAKER) (test code = 432) BASOPHILS RELATIVE PERCENT 1 % (BEAKER) (test code = 437) NEUTROPHILS ABSOLUTE COUNT 4.01 K/ L 1.56-6.13 (BEAKER) (test code = 670) LYMPHOCYTES ABSOLUTE COUNT 2.57 K/ L 1.18-3.74 (BEAKER) (test code = 414) MONOCYTES ABSOLUTE COUNT (BEAKER) 0.58 K/ L 0.24-0.36 H (test code = 415) EOSINOPHILS ABSOLUTE COUNT 0.11 K/ L 0.04-0.36 (BEAKER) (test code = 416) BASOPHILS ABSOLUTE COUNT (BEAKER) 0.04 K/ L 0.01-0.08 (test code = 417) IMMATURE GRANULOCYTES-RELATIVE 0 % 0-1 PERCENT (BEAKER) (test code = 2801) BASIC METABOLIC [id number] 03:06:00 Test Item Value Reference Range Interpretation Comments SODIUM (test code = NA) 138 mmol/L 134-147 N POTASSIUM (test code = 3.5 mmol/L 3.4-5.0 N K) CHLORIDE (test code = 107 mmol/L 100-108 N CL) CARBON DIOXIDE (test 27 mmol/L 21-32 N code = CO2) ANION GAP (test code = 4.0 GAP calc 4.0-15.0 N GAP) GLUCOSE (test code = 88 MG/DL 70-110 N GLU) BLOOD UREA NITROGEN 10 MG/DL 7-18 N (test code = BUN) GLOMERULAR FILTRATION >=60 max estimate >60 RATE (test code = GFR) estGFR CREATININE (test code = 0.7 MG/DL 0.6-1.0 N CREAT) CALCIUM (test code = CA) 8.8 MG/DL 8.5-10.1 N HEPATIC FUNCTION [id number] 03:06:00 Test Item Value Reference Range Interpretation [...] 66 Unit/L 45-117 N code = ALKP) [id number] 03:06:00 Test Item Value Reference Range Interpretation Comments LIPASE (test code = LIP) 125 Unit/L 114-286 N UR HCG [id number] 02:40:00 Test Item Value Reference Range Interpretation Comments UR HCG QUAL (test code = HCGQLU) NEGATIVE NEGATIVE UA RFLX MICR CULT IF [id number] 02:38:00 Test Item Value Reference Range Interpretation [...] = UACULT) Indication for culture: Dysuria/FrequencyCBC W/AUTO [id number] 02:37:00 Test Item Value Reference Range Interpretation [...]
[2020-10-18 21:52] LABS: Absolute Lymphocytes (CBC) 3.3 K/uL (0.7-4.9); Basophils % 0.7 % (0-1.3); Hematocrit 41.6 % (36.0-45.0); Lymphocytes % 24.6 % (15.3-44.8); MPV 8.5 fL (7.6-11.3); RBC Red Blood Cell Count 5.24 M/uL (3.86-4.86)
[2020-10-18] MEDS ORDERED: FAMOTIDINE 20 MG/2 ML VIAL IV ONE (21:56)
[2020-10-18] MEDS ORDERED: NA CHLORIDE 0.9% 1,000 ML ONE (21:56)
[2020-10-18] MEDS ORDERED: HYDROMORPHONE HCL 1 MG/ML INJ ONE (21:58)
[2020-10-18] MEDS ORDERED: ONDANSETRON 4 MG/2 ML VIAL ONE (21:59)
[2020-10-18 22:11] LABS: ALT/SGPT 93 U/L (12-78); AST/SGOT 87 U/L (15-37); Albumin 3.9 g/dL (3.4-5.0); Alkaline Phosphatase 71 U/L (45-117); BUN Blood Urea Nitrogen 9 mg/dL (7-18); Bicarbonate 27 mmol/L (21-32); Bilirubin Direct 0.3 mg/dL (0-0.2); Bilirubin Total 0.6 mg/dL (0.2-1.0); Glucose Level 109 mg/dL (74-106); Lipase 283 U/L (73-393); Potassium 3.6 mmol/L (3.5-5.1); Protein, Total 7.8 g/dL (6.4-8.2); Sodium Level 141 mmol/L (136-145)
[2020-10-18] MEDS ORDERED: LIDOCAINE VISCOUS 2% SOLN 15 ML UDC ONE (22:12)
[2020-10-18] MEDS ORDERED: MAGNES/ALUMIN/SIMET 30ML UCUP ONE (22:13)
--- NOTE | 2020-10-18 23:30 | ER ---
Nurse's Notes [facility] Name: Brandie Rees Age: 35 yrs Sex: Female : 1985 Arrival Date: 10/18/2020 Time: 21:19 Bed 8 Private MD: Diagnosis: Pain localized to upper abdomen Presentation: 10/18 21:33 Chief complaint: Patient states: I have had abdominal pain today, worsening this sg evening, Im also having vomiting as well, was recently diagnosed with pancreatitis and I think its the same thing. Coronavirus screen: Client denies travel out of the [place] in the last 14 days. nausea, vomiting. Client presents with at least one sign or symptom that may indicate coronavirus-19. Provider contacted for isolation considerations. Ebola Screen: Patient negative for fever greater than or equal to 101.5 degrees Fahrenheit, and additional compatible Ebola Virus Disease symptoms Patient denies exposure to infectious person. Patient denies travel to an Ebola-affected area in the 21 days before illness onset. No symptoms or risks identified at this time. Initial Sepsis Screen: Does the patient meet any 2 criteria? HR > 90 bpm. Does the patient have a suspected source of infection? Yes: Acute abdominal pain. Risk Assessment: Do you want to hurt yourself or someone else? Patient reports no desire to harm self or others. Onset of symptoms was October 18, 2020. Care prior to arrival: None. Transition of care: patient was not received from another setting of care. 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 - Social history:: Smoking status: Patient denies any tobacco usage or history of. Patient/guardian denies using alcohol, street drugs, The patient lives with family. - Family history:: not pertinent. Screenin:41 Abuse screen: Denies threats or abuse. Nutritional screening: No deficits noted. ll2 Tuberculosis screening: No symptoms or risk factors identified. Fall Risk None identified. Assessment: 21:36 General: Appears in no apparent distress. Behavior is calm, cooperative, appropriate ll2 for age. Pain: Complains of pain in left upper quadrant Pain does not radiate. Pain currently is 10 out of 10 on a pain scale. Neuro: Level of Consciousness is awake, alert, obeys commands, Oriented to person, place, time, situation. Cardiovascular: Patient's skin is warm and dry. Respiratory: Airway is patent Respiratory effort is even, unlabored, Respiratory pattern is regular, symmetrical. GI: Bowel sounds present X 4 quads. Abd is soft and non tender. : No signs and/or symptoms were reported regarding the genitourinary system. EENT: No signs and/or symptoms were reported regarding the EENT system. Derm: Skin is intact, is healthy with good turgor, Skin is dry, Skin is pink, warm \T\ dry. Musculoskeletal: Circulation, motion, and sensation intact. Range of motion: intact in all extremities. 22:35 Reassessment: Patient and/or family updated on plan of care and expected duration. Pain ll2 level reassessed. Patient is alert, oriented x 3, equal unlabored respirations, skin warm/dry/pink. aided ambulation to BR. 23:30 Reassessment: Patient and/or family updated on plan of care and expected duration. Pain rr5 level reassessed. Patient is alert, oriented x 3, equal unlabored respirations, skin warm/dry/pink. pt states the medicine helped. Vital Signs: 21:40 BP 144 / 73; Pulse 92; Resp 18; Temp 98.1; Pulse Ox 98% on R/A; ll2 23:00 BP 126 / 71; Pulse 82; Resp 16; Pulse Ox 99% on R/A; ll2 ED Course: 21:19 Patient arrived in ED. bp1 21:23 Belgica Chavarria [facility]-C [facility] kb 21:23 Arturo Mg MD is Attending Physician. kb 21:25 Arturo Mg MD is Attending Physician. ma2 21:33 Arm band placed on. sg 21:35 Triage completed. sg 21:36 Cleo Miranda, VIOLETA is Primary Nurse. ll2 21:40 Inserted saline lock: 20 gauge in right antecubital area, using aseptic technique. ea Blood collected. 21:49 Radiology exam delayed due to test not completed at this time. mw3 21:55 Patient has correct armband on for positive identification. Placed in gown. Bed in low ea position. Call light in reach. Side rails up X2. 22:59 CT Abd/Pelvis - IV Contrast Only In Process Unspecified. EDMS 23:43 No provider procedures requiring assistance completed. IV discontinued, intact, rr5 bleeding controlled, No redness/swelling at site. Pressure dressing applied. Administered Medications: 21:53 Drug: Dilaudid 1 mg Route: IVP; Site: right forearm; ll2 22:39 Follow up: Response: No adverse reaction; Pain is decreased; RASS: Alert and Calm (0) ll2 21:53 Drug: NS 0.9% 1000 ml Route: IV; Rate: 1000 ml; Site: right forearm; ll2 22:55 Follow up: Response: No adverse reaction; IV Status: Completed infusion; IV Intake: ll2 1000ml 21:54 Drug: Zofran (Ondansetron) 4 mg Route: IVP; Site: right forearm; ll2 22:55 Follow up: Response: No adverse reaction; Nausea is decreased ll2 21:54 Drug: Pepcid 20 mg Route: IVP; Site: right forearm; ll2 22:55 Follow up: Response: No adverse reaction ll2 22:04 Drug: GI Cocktail without - (Maalox Suspension 30 ml, Lidocaine Liquid 2 % 15 ll2 ml) Route: PO; 23:06 Follow up: Response: No adverse reaction ll2 Intake: 22:55 IV: 1000ml; Total: 1000ml. ll2 Outcome: 23:29 Discharge ordered by . ma2 23:43 Discharged to home ambulatory. rr5 23:43 Condition: stable 23:43 Discharge instructions given to patient, Instructed on discharge instructions, follow up and referral plans. medication usage, Demonstrated understanding of instructions, follow-up care, medications, Prescriptions given X 2. 23:44 Patient left the ED. rr5 Signatures: Dispatcher [employer] EDMS Belgica Chavarria, ROMAINE BRAVOP-Cuong Draper RN Qing Hu RN Arturo Erickson ea, MD MD ma2 Willis, Michelle mw3 Paul Bar RN RN rr5 Cleo Miranda RN RN 2 Lolita Mckay bp1 Corrections: (The following items were deleted from the chart) 21:55 21:42 Inserted saline lock: 20 gauge ll2 ll2
--- NOTE | 2020-10-18 23:30 | EDPHYS ---
Physician Documentation [facility] Name: Brandie Rees Age: 35 yrs Sex: Female : 1985 Arrival Date: 10/18/2020 Time: 21:19 Bed 8 Private MD: ED Physician Arturo Mg HPI: 10/18 21:37 This 35 yrs old Female presents to ER via Ambulatory with complaints of ma2 Abdominal Pain, Vomiting. 21:40 This 35 yrs old Female presents to ER via Ambulatory with complaints of ma2 Abdominal Pain, Vomiting. 21:40 The patient presents to the emergency department with nausea, vomiting. Onset: The ma2 symptoms/episode began/occurred gradually, 3 day(s) ago. Associated signs and symptoms: Pertinent negatives: belching, diarrhea, flatulence, hematuria. Severity of symptoms: At their worst the symptoms were moderate in the emergency department the symptoms are unchanged. The patient has experienced similar episodes in the past. 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 - Social history:: Smoking status: Patient denies any tobacco usage or history of. Patient/guardian denies using alcohol, street drugs, The patient lives with family. - Family history:: not pertinent. ROS: 21:40 Constitutional: Negative for fever, chills, and weight loss. ma2 21:40 All other systems are negative. Exam: 21:40 Constitutional: This is a well developed, well nourished patient who is awake, alert, ma2 and in no acute distress. Neck: Trachea midline, no thyromegaly or masses palpated, and no cervical lymphadenopathy. Supple, full range of motion without nuchal rigidity, or vertebral point tenderness. No Meningismus. Chest/axilla: Normal chest wall appearance and motion. Nontender with no deformity. No lesions are appreciated. Cardiovascular: Regular rate and rhythm with a normal S1 and S2. No gallops, murmurs, or rubs. Normal PMI, no JVD. No pulse deficits. Respiratory: Lungs have equal breath sounds bilaterally, clear to auscultation and percussion. No rales, rhonchi or wheezes noted. No increased work of breathing, no retractions or nasal flaring. Abdomen/GI: Soft, non-tender, with normal bowel sounds. No distension or tympany. No guarding or rebound. No evidence of tenderness throughout. Back: No spinal tenderness. No costovertebral tenderness. Full range of motion. Skin: Warm, dry with normal turgor. Normal color with no rashes, no lesions, and no evidence of cellulitis. MS/ Extremity: Pulses equal, no cyanosis. Neurovascular intact. Full, normal range of motion. Vital Signs: 21:40 BP 144 / 73; Pulse 92; Resp 18; Temp 98.1; Pulse Ox 98% on R/A; ll2 23:00 BP 126 / 71; Pulse 82; Resp 16; Pulse Ox 99% on R/A; ll2 MDM: 21:26 Patient medically screened. [facility] 21:40 Differential diagnosis: Nonspecific abd pain, gastritis, pancreatitis, viral tx2 gastroenteritis, gastroenteritis. 23:29 Data reviewed: vital signs, nurses notes. Counseling: I had a detailed discussion with [facility] the patient and/or guardian regarding: the historical points, exam findings, and any diagnostic results supporting the discharge/admit diagnosis, the presence of at least one elevated blood pressure reading (>120/80) during this emergency department visit, the need for outpatient follow up. Response to treatment: the patient's symptoms have markedly improved after treatment. 10/18 21:38 Order name: BMP; Complete Time: 23:05 [facility] 10/18 21:38 Order name: CBC with Diff; Complete Time: 23:05 [facility] 10/18 21:38 Order name: Hepatic Function; Complete Time: 23:05 [facility] 10/18 21:38 Order name: Lipase; Complete Time: 23:05 [facility] 10/18 22:32 Order name: Urine --Ancillary (enter results) 3 10/18 22:32 Order name: Urine Dipstick--Ancillary (enter results) 3 10/18 21:38 Order name: IV Saline Lock; Complete Time: 21:40 [facility] 10/18 21:38 Order name: Labs collected and sent; Complete Time: 22:04 [facility] 10/18 21:38 Order name: CT Abd/Pelvis - IV Contrast Only [facility] 10/18 21:39 Order name: Urine Dipstick-Ancillary (obtain specimen); Complete Time: 22:27 ma2 Administered Medications: 21:53 Drug: Dilaudid 1 mg Route: IVP; Site: right forearm; ll2 22:39 Follow up: Response: No adverse reaction; Pain is decreased; RASS: Alert and Calm (0) ll2 21:53 Drug: NS 0.9% 1000 ml Route: IV; Rate: 1000 ml; Site: right forearm; ll2 22:55 Follow up: Response: No adverse reaction; IV Status: Completed infusion; IV Intake: ll2 1000ml 21:54 Drug: Zofran (Ondansetron) 4 mg Route: IVP; Site: right forearm; ll2 22:55 Follow up: Response: No adverse reaction; Nausea is decreased ll2 21:54 Drug: Pepcid 20 mg Route: IVP; Site: right forearm; ll2 22:55 Follow up: Response: No adverse reaction ll2 22:04 Drug: GI Cocktail without - (Maalox Suspension 30 ml, Lidocaine Liquid 2 % 15 ll2 ml) Route: PO; 23:06 Follow up: Response: No adverse reaction ll2 Disposition: 10/18/20 23:29 Discharged to Home. Impression: Pain localized to upper abdomen. - Condition is Stable. - Discharge Instructions: Abdominal Pain, Adult. - Prescriptions for Pepcid 20 mg Oral Tablet - take 1 tablet by ORAL route once daily for 10 days; 10 tablet. Zofran 4 mg Oral Tablet - take 1 tablet by ORAL route every 12 hours As needed; 20 tablet. - Medication Reconciliation Form, Thank You Letter, Antibiotic Education, Prescription Opioid Use form. - Follow up: Private Physician; When: Tomorrow; Reason: Wound Recheck, If symptoms return. Signatures: Dispatcher [employer] EDCuong Bloom RN RN Artuor Mg MD MD ma2 Paul Bar RN RN rr5 Cleo Miranda RN RN ll2 Corrections: (The following items were deleted from the chart) 23:44 23:29 10/18/2020 23:29 Discharged to Home. Impression: Pain localized to upper abdomen. rr5 Condition is Stable. Prescriptions for Pepcid 20 mg Oral Tablet - take 1 tablet by ORAL route once daily for 10 days; 10 tablet. and Forms are Medication Reconciliation Form, Thank You Letter, Antibiotic Education, Prescription Opioid Use. Follow up: Private Physician; When: Tomorrow; Reason: Wound Recheck, If symptoms return. ma2
[2020-10-18 23:48] LABS: Urine Blood NEGATIVE (NEG); Urine Glucose NEGATIVE (NEG); Urine Protein TRACE (NEG); Urine Specific Gravity >1.030 (1.005-1.030)
[2020-10-19 04:47] VITALS: TEMP 98.1
[2020-10-19 04:49] VITALS: BP 126/71; O2SAT 99
--- NOTE | 2020-10-19 09:41 | RAD REPORT ---
EXAM DESCRIPTION: CT - Abdomen Pelvis W Contrast - 10/19/2020 3:48 am CLINICAL HISTORY: ABD PAIN COMPARISON: 10/07/2020. TECHNIQUE: CT ABDOMEN PELVIS WITH IV CONTRAST on 10/18/2020 9:38 PM PAPER FINISHER This exam was performed according to our departmental dose-optimization program, which includes autom ated exposure control, adjustment of the mA and/or kV according to patient size and/or use of iterati ve reconstruction technique. FINDINGS: Lower lungs are clear. Abdomen: The liver is normal in appearance. There is no biliary dilatation. Gallbladder is normal in appearance. Stomach is moderately distended with fluid. The pancreas and spleen are normal in appeara nce. The adrenal glands and kidneys are unremarkable. Abdominal aorta is normal in course and caliber without aneurysm. There is no free air. There is no r etroperitoneal adenopathy. Pelvis: There is no bowel obstruction. Urinary bladder is unremarkable. There is no free fluid. Uteru s is normal in size. Appendix is normal. Skeleton: There are no acute osseous findings. No suspicious bony lesions. IMPRESSION: No definite acute process. Electronically signed by: Sven Fletcher MD 10/18/2020 11:11 PM PAPER FINISHER Due to temporary technical issues with the PACS/Fluency reporting system, reports are being signed by the in house radiologist without review as a courtesy to ensure prompt reporting. The interpreting r adiologist is fully responsible for the content of the report.
== END 2020-10-18 23:44 | disposition home or self-care (01) ==
LOC: ER 21:17
DX: R10.10 Upper abdominal pain, unspecified (principal); R11.2 Nausea with vomiting, unspecified
CPT/HCPCS: 36415; 74177; 80048; 80076; 81003; 81025; 83690; 85025; 96361; 96374; 96375; 99284; J1170; J2405; J7030; Q9967

== ENCOUNTER 2020-11-26 10:09 | Emergency (ER) | payer SELFPAY ==
--- OUTSIDE RECORDS SUMMARY | 2020-11-26 10:28 | XMS REPORT | Clinical Summary ---
:1985 Author Organization [facility] Address [address] [place] [address] Care Team Providers Name Role Phone Unavailable [...] Description 10/07/2020 - Hospital Encounter General Internal [facility] Acu te pancreatitis, 10/10/2020 Medicine , MD Deon unspecified Gonzalez, Mary complication st atusFredy MD unspecified Surjit, pancreatitis ty pe Mychal Price MD (Primary Dx) after 11/26/2019 Social History Tobacco Use Types Packs/Day Years Used Date Never Assessed Sex Assigned at Date Recorded Not on file Last Filed Vital Signs Vital Sign Reading Time Taken Comments Blood Pressure 109/63 10/10/2020 7:53 AM [employer]OR [employer]AME [employer] Pulse 69 10/10/2020 7:53 AM [employer]OR [employer]AME BUILDER Temperature 36.3 C (97.3 F) 10/10/2020 7:53 AM [employer]OR FRAME BU[employer]DER Respiratory Rate 18 10/10/2020 7:53 AM DOOR FRAME BUILDER Oxygen Saturation 98% 10/10/2020 7:53 AM DOOR FRAME BUILDER Inhaled Oxygen Concentration - - Weight 113.4 kg (250 lb) 10/07/2020 9:39 AM DOOR FRAME BUILDER Height 160 cm (5' 3") 10/07/2020 9:39 AM [employer]OR FRAME BUILDER Body Mass Index 44.29 10/07/2020 9:39 AM DOOR FRAME BUILDER Plan of Treatment Health Maintenance Due Date Last Done Comments CERVICAL CANCER SCREENING PAP ONLY (Age 21-65) 02/02/2008 INFLUENZA VACCINE (#1) 2020 LIPID PANEL 10/07/2023 10/07/2020 Procedures Procedure Name Priority Date/Time Associated Comments Diagnosis COMPREHENSIVE STAT 10/10/2020 8:24 Results fo r this METABOLIC PANEL AM [employer]OR FRAME BU[employer]DER procedure ar e in the results section. CBC W/PLT COUNT & AUTO Routine 10/09/2020 4:05 R esults for this DIFFERENTIAL AM [employer] procedure are i n the results section. CBC W/PLT COUNT & AUTO Routine 10/09/2020 4:05 R esults for this DIFFERENTIAL AM [employer] procedure are i n the results section. HEPATIC FUNCTION PANEL Routine 10/09/2020 4:05 R esults for this AM [employer]ILDER procedure are i n the results section. BASIC METABOLIC PANEL Routine 10/09/2020 4:05 Re sults for this (7) AM [employer] BUILDER procedure are i n the results section. HEPATITIS PANEL, ACUTE Routine 10/08/2020 2:30 R esults for this PM [employer]AME BUILDER procedure are i n the results section. CBC W/PLT COUNT & AUTO Routine 10/08/2020 4:32 R esults for this DIFFERENTIAL AM [employer]DER procedure are i n the results section. CBC W/PLT COUNT & AUTO Routine 10/08/2020 4:32 R esults for this DIFFERENTIAL AM [employer] procedure are i n the results section. HEPATIC FUNCTION PANEL Routine 10/08/2020 4:32 R esults for this AM [employer]DER procedure are i n the results section. BASIC METABOLIC PANEL Routine 10/08/2020 4:32 Re sults for this (7) AM [employer]OR FRAME BUILDER procedure are i n the results section. US ABDOMEN COMPLETE [place] 10/07/2020 5:50 Resu lts for this PM [employer]OR FRAME BUILDER procedure are i n the results section. SARS-COV2/RT-PCR ([facility] Routine 10/07/2020 10:57 R esults for this & REF LABS) AM [employer]OR FRAME BUILDER procedure are i n the results section. CBC W/PLT COUNT & AUTO Routine 10/07/2020 10:32 R esults for this DIFFERENTIAL AM [employer]ILDER procedure are i n the results section. LIPASE Routine 10/07/2020 10:32 Results for this AM [employer]OR FRAME BUILDER procedure are i n the results section. CBC W/PLT COUNT & AUTO Routine 10/07/2020 10:32 R esults for this DIFFERENTIAL AM [employer] BUILDER procedure are i n the results section. LIPID PANEL Routine 10/07/2020 10:32 Results for this AM [employer] FRAME BUILDER procedure are i n the results section. HEPATIC FUNCTION PANEL Routine 10/07/2020 10:32 R esults for this AM [employer]OR FRAME BUILDER procedure are i n the results section. BASIC METABOLIC PANEL Routine 10/07/2020 10:32 Re sults for this (7) AM [employer]OR FRAME BUILDER procedure are i n the results section. after 11/26/2019 Results Comprehensive metabolic panel (10/10/2020 8:24 AM DOOR FRAME BUILDER) Protein, Total 7.2Comment: Specimen 6.0 - 8.3 [facility] slightly hemolyzed gm/dL [facility] Albumin 3.9Comment: Specimen 3.5 - 5.0 [facility] slightly hemolyzed g/dL [facility] Alkaline 67 40 - 150 U/L [facility] Phosphatase [facility] Total Bilirubin 0.5Comment: Specimen 0.2 - 1.2 [facility] slightly hemolyzed mg/dL [facility] Sodium 136 136 - 145 [facility] meq/L [facility] Potassium 4.3Comment: Specimen 3.5 - 5.1 [facility] slightly hemolyzed meq/L [facility]loride 105 98 - 107 [facility] me[facility]L [facility] CO2 23 22 - 29 [facility] me[facility]/L [facility] BUN 7 7 - 21 mg/dL [facility] Creatinine 0.74Comment: 0.57 - 1.25 [facility] Specimen slightly mg/dL [facility] Glucose 104 70 - 105 [facility] mg/dL [facility] Calcium 9.1 8.4 - 10.2 [facility] mg/dL [facility] AST 74 (H)Comment: 5 - 34 U/L [facility] Specimen [facility] ALT 153 (H)Comment: 6 - 55 U/L [facility] Specimen [facility] EGFR Comment: [facility] INSUFFICIENT [facility] CLINICAL DATA TO MEDICAL CENTER CALCULATE ESTIMATED GFR. Specimen Blood Narrative Performed At Insulation Nozzleman ID - AGUEDA [facility] Performing Organization Address City/State/Zipcode Phone Number [facility] [address] [place] [address] CENTER CBC with platelet count + automated diff (10/09/2020 4:05 AM DOOR FRAME BUILDER)Only the most recent of3 resultswithin the time period is included. Pathologist Sig nature WBC 5.5 3.5 - 10.5 [facility] RBC 4.63 3.93 - 5.22 [facility] M/[facility] Hemoglobin 12.2 11.2 - 15.7 [facility] GM/DL [facility] Hematocrit 37.7 34.1 - 44.9 % [facility] MCV 81.4 79.4 - 94.8 fL [facility] MCH 26.3 25.6 - 32.2 pg [facility] MCHC 32.4 32.2 - 35.5 [facility] RDW 12.8 11.7 - 14.4 % [facility] Platelets 266 150 - 450 K/CU [facility] MPV 9.9 9.4 - 12.3 fL [facility] nRBC 0 0 - 0 /100 WBC [facility] % Neutros 36 % [facility] % Lymphs 53 % [facility] % Monos 7 % [facility] % Eos 2 % [facility] % Baso 1 % [facility] # Neutros 2.00 1.56 - 6.13 [facility] # Lymphs 2.95 1.18 - 3.74 [facility] # Monos 0.41 (H) 0.24 - 0.36 [facility] K/L [facility] # Eos 0.13 0.04 - 0.36 [facility] # Baso 0.03 0.01 - 0.08 [facility] K/L [facility] Immature 0 0 - 1 % [facility] Granulocytes-Relative [facility] Specimen Blood Performing Organization Address City/[facility]/Zipcode Phone Number [facility] [address] [place] [address] [place] Hepatic function panel (10/09/2020 4:05 AM DOOR FRAME BUILDER)Only the most recent of3 results within the time period is included. Pathologist Sig nature Protein, Total 5.9 (L) 6.0 - 8.3 gm/dL [facility] Albumin 3.3 (L) 3.5 - 5.0 g/dL [facility] Total Bilirubin 0.4 0.2 - 1.2 mg/dL [facility] Bilirubin, Direct 0.2 0.1 - 0.5 mg/dL [facility] Alkaline Phosphatase 61 40 - 150 U/L [facility] AST 37 (H) 5 - 34 U/L [facility] ALT 132 (H) 6 - 55 U/L [facility] Specimen Blood Narrative Performed At Insulation Nozzleman [facility] Performing Organization Address City/[facility] Cent[facility]ode Phone Number [facility] [address] [place] [address] CENTER Basic metabolic panel (10/09/2020 4:05 AM DOOR FRAME BUILDER)Only the most recent of3 results within the time period is included. Sodium 137 136 - 145 [facility] meq/L [facility] Potassium 3.7 3.5 - 5.1 [facility] meq/L [facility] Chloride 107 98 - 107 meq/L [facility] CO2 25 22 - 29 meq/L [facility] BUN 4 (L) 7 - 21 mg/dL [facility] Creatinine 0.62 0.57 - 1.25 [facility] mg/dL [facility] Glucose 79 70 - 105 mg/dL [facility] Calcium 8.2 (L) 8.4 - 10.2 [facility] mg/dL [facility] EGFR Comment: INSUFFICIENT [facility] CLINICAL DATA TO [facility] CALCULATE ESTIMATED CENTER GFR. Specimen Blood Narrative Performed At Insulation Nozzleman ID - EDASI [facility] Performing Organization Address City/[facility] Centercode Phone Number [facility] [address] [place] [address] CENTER Hepatitis panel, acute (10/08/2020 2:30 PM DOOR FRAME BUILDER) Pathologist Sig nature Hep A IgM Nonreactive Nonreactive [facility] Hep B C IgM Nonreactive Nonreactive [facility] Hepatitis C Ab Nonreactive Nonreactive [facility] HBsAg Screen Nonreactive Nonreactive [facility] Specimen Blood Narrative Performed At Insulation Nozzleman ID - DB [facility] Performing Organization Address [facility] Centercowy Phone Number [address] [address] CENTER US abdomen complete (10/07/2020 5:50 PM DOOR FRAME BUILDER) Specimen Narrative Performed At FINAL REPORT GE RIS U/S, ABDOMINAL, COMPLETE CLINICAL HISTORY: evaluate for [...] Tana Augustin MD Report Verified Date/Time: 10/07/2020 22:53:23 Reading Location: [facility] C013[facility] Reading Room Procedure Note Interface, External Ris In - 10/07/2020 10:55 PM DOOR FRAME BUILDER FINAL REPORT U/S, ABDOMINAL, COMPLETE CLINICAL HISTORY: [...] Verified Date/Time: 10/07/2020 2 2:53:23 Reading Location: [facility] C013T [facility] Reading Room Performing Organization Address City/State/Zipcode Phone Number GE RIS SARS-CoV2/RT-PCR (Asymptomatic ONLY) (10/07/2020 10:57 AM DOOR FRAME BUILDER) SARS-COV2/RT-PCR Negative Not Detected, [facility] Negative, See [facility] external report CENTER for linked test SARS-COV-2 [facility] SABRINA [facility] PERFORMING LAB [facility] Specimen Other - Nasopharyngeal wall structure (b ata structure) Narrative Performed At Negative result for this test determines that [facility] SARS-CoV-2 RNA was not present in the [...] the Act. Fact Sheet for Healthcare Providers: https://www.[employer])/sites/default/files/pro duct/documents/Fact_Sheet_HC_Providers_Lyra_SA RS-CoV-2.pdf Fact Sheet for Healthcare Patients: https://www.[employer]sites/default/files/pro duct/documents/Fact_Sheet_Patients_Lyra_SARS-C oV-2.pdf Performing Laboratory: [address] [address] Performing Organization Address City/[facility] [place] [address] CENTER Lipase (10/07/2020 10:32 AM DOOR FRAME BUILDER) Pathologist Sig nature Lipase >1200 (H) 8 - 78 U/L [facility] Specimen Blood Narrative Performed At Insulation Nozzleman ID - AGUEDA Tee [facility] Performing Organization Address [facility] Phone Number [address] [address] [place] Lipid panel (10/07/2020 10:32 AM DOOR FRAME BUILDER) Pathologist Sig nature Triglycerides 77 mg/dL [facility] Cholesterol 124 mg/dL [facility] HDL 43 mg/dL [facility] LDL Calculated 66 mg/dL [facility] M EDICAL CENTER Specimen Blood Narrative Performed At Triglyceride Reference Range: [facility] Low Risk <150 Borderline 150-199 High Risk 200-499 Very High Risk >=500 Cholesterol Reference Range: Low Risk <200 Borderline 200-239 High Risk >240 HDL Cholesterol Reference Range: Low Risk >=60 High Risk <40 LDL Cholesterol Reference Range: Optimal <100 Near Optimal 100-129 Borderline 130-159 High 160-189 Very High >=190 Insulation Nozzleman ID - AGUEDA Tee Performing Organization Address [facility]/Zipcode Phone Number [facility] [address] [place] [address] CENTER after 11/26/2019 Advance Directives For more information, please contact: [phone] Code Status Date Activated Date Inactivated Comments Full Code 10/07/2020 9:52 AM 10/10/2020 1:19 PM This code status was determined by: Patient
--- OUTSIDE RECORDS SUMMARY | 2020-11-26 10:29 | XMS REPORT | Continuity of Care Document ---
:1985 Author Organization [facility] t Address [address] [place] [address] Care Team Providers Name Role Phone Deon Guerra MD Attending Clinician [phone] Mary Gonzalez MD Attending Clinician Albert Eddy MD Attending Clinician EMILY Attending Clinician Unavailable SHERLY GONZALEZ Admitting Clinician Unavailable Payers Payer Name Policy Type Policy Number Effective Date Expiration Date S ource Problems Condition Condition Condition Status Onset Resolution Last Treating Co mments Source Name Details Category Date Date Treatment Clinician Date Pancreatit Pancreatit Disease Active 2019-[address] is, acute is, acute 12-07 [facility] [facility] Allergies, Adverse Reactions, Alerts Allergy Allergy Status Severity Reaction(s) Onset Inactive Treating Comm ents Source Name Type Date Date Clinician No Known DA Active U [facility] All[facility]ie 08-05 [facility] Social History Social Habit Start Date Stop Date Quantity Comments Source Sex Assigned At [facility] Medications Ordered Filled Start Stop Current Ordering Indication Dosage Frequency Signature Comments Components Source Medication Medication Date Date Medication? Clinician (SIG) Name Name omeprazole 2019-11- Yes 20mg QD Take 1 [facility] (PriLOSEC) 12-10 capsule [facility] - 20 MG 00:00: 23:59 (20 mg Medical capsule 00 :00 total) by Center mouth daily. Vital Signs Vital Name Observation Time Observation Value Comments Source Systolic blood 2020-10-10 07:53:00 109 mm[Hg] [facility] Diastolic blood 2020-10-10 07:53:00 63 mm[Hg] [facility] S [facility] Heart rate 2020-10-10 07:53:00 69 /min [facility] Body temperature 2020-10-10 07:53:00 36.28 Yvrose [facility] Respiratory rate 2020-10-10 07:53:00 18 /min [facility] Oxygen saturation in 2020-10-10 07:53:00 98 /min [facility] Arterial blood by Medical Ce nter Pulse oximetry Body height 2020-10-07 09:39:00 160 cm [facility] Body weight 2020-10-07 09:39:00 113.399 kg [facility] BMI 2020-10-07 09:39:00 44.29 kg/m2 [facility] Procedures Procedure Date / Time Performed Performing Clinician Ava andrea COMPREHENSIVE METABOLIC 2020-10-10 08:24:[address] [facility] BASIC METABOLIC PANEL (7) 2020-10-09 04:05:00 Mary Gonzalez [facility] HEPATIC FUNCTION PANEL 2020-10-09 04:05:00 Mary Gonzalez [facility] CBC W/PLT COUNT & AUTO 2020-10-09 04:05:00 Mary Gonzalez [facility] HEPATITIS PANEL, ACUTE 2020-10-08 14:30:00 Mychal Eddy [facility] BASIC METABOLIC PANEL (7) 2020-10-08 04:32:00 Mary Gonzalez [facility] HEPATIC FUNCTION PANEL 2020-10-08 04:32:00 Mary Gonzalez [facility] CBC W/PLT COUNT & AUTO 2020-10-08 04:32:00 Mary Gonzalez [facility] US ABDOMEN COMPLETE 2020-10-07 17:50:00 Mayr Gonzalez [facility] SARS-COV2/RT-PCR ([facility] & 2020-10-07 10:57:00 Mary Gonzalez [facility]) [facility] BASIC METABOLIC PANEL (7) 2020-10-07 10:32:00 Mary Gonzalez [facility] HEPATIC FUNCTION PANEL 2020-10-07 10:32:00 Mary Gonzalez [facility] LIPID PANEL 2020-10-07 10:32:00 Mary Gonzalez [facility] LIPASE 2020-10-07 10:32:00 Mary Gonzalez [facility] CBC W/PLT COUNT & AUTO 2020-10-07 10:32:00 Mary Gonzalez [facility] Plan of Care Planned Activity Planned Date Details Comments Source Future Scheduled 2023-10-07 [facility]00 (procedure) [code = [facility] 88943070] Future Scheduled 2020-07-21 INFLUENZA VACCINE [facility] - Test 00:00:00 (#1) [code = [facility] INFLUENZA VACCINE (#1)] Future Scheduled 2008-02-02 Screening for [facility] - Test 00:00:00 malignant neoplasm Medical C enter of cervix (procedure) [code = 916093440] Results Test Description Test Time Test Comments Results Result Comments Source Comprehensive metabolic panel 2020-10-10 08:51:00 Test Item Value Reference Range Interpretation Comme nts Protein, Total (test code 7.2 6.0- 8.3 gm/dL Specimen slightly = 2885-2) hemolyzed Albumin (test code = 3.9 g/dL 3.5-5 Specime n slightly 20498-4) hemolyzed Alkaline Phosphatase (test 67 U/L 40-150 code = 6768-6) Total Bilirubin (test code 0.5 mg/dL 0.2-1.2 S pecimen slightly = 1975-2) hemolyzed Sodium (test code = 136 meq/L 174-958 8480-2) Potassium (test code = 4.3 meq/L 3.5-5.1 Speci men slightly 2823-3) hemolyzed Chloride (test code = 105 meq/L 98-107 2075-0) CO2 (test code = 8-9) 23 meq/L 22-29 BUN (test code = 3094-0) 7 mg/dL 7-21 Creatinine (test code = 0.74 mg/dL 0.57-1.25 Spec imen slightly 2160-0) hemolyzed Glucose (test code = 104 mg/dL 70-105 2345-7) Calcium (test code = 9.1 mg/dL 8.4-10.2 86662-4) AST (test code = 1920-8) 74 U/L 5-34 H Spe cimen slightly hemolyzed ALT (test code = 1742-6) 153 U/L 6-55 H Spe cimen slightly hemolyzed EGFR (test code = 04045-2) I NSUFFICIENT CLINICAL DATA TO CALCULA TE ESTIMATED GFR. RICARDO (test code = RICARDO) [employer]er ID - AGUEDA C Lab Interpretation (test Abnormal code = 64162-1) [facility] [id number] 08:51:00 Test Item Value Reference Range Interpretation [...] 1092) DATA TO CALCULA TE ESTIMATED GFR. [employer]er ID - AGUEDA [facility] metabolic [id number] 04:58:00 Test Item Value Reference Range Interpretation Comments Sodium (test code = 137 meq/L 095-707 9650-2) Potassium (test code 3.7 meq/L 3.5-5.1 = 2823-3) Chloride (test code = 107 meq/L 98-107 2075-0) CO2 (test code = 25 meq/L 22-29 2028-9) BUN (test code = 4 mg/dL 7-21 L 3094-0) Creatinine (test code 0.62 mg/dL 0.57-1.25 = 2160-0) Glucose (test code = 79 mg/dL 70-105 2345-7) Calcium (test code = 8.2 mg/dL 8.4-10.2 L 25755-5) EGFR (test code = [place] [address]-8) CLINICAL DATA T O CALCULATE ESTIMATED GFR. RICARDO (test code = RICARDO) [employer]er ID - EDASI Lab Interpretation Abnormal (test code = 29858-8) [facility] METABOLIC [id number] 04:58:00 Test Item Value Reference Range Interpretation [...] 1092) DATA TO CALCULA TE ESTIMATED GFR. [employer] Installer ID - EDASIHepatic function [id number] 04:50:00 Test Item Value Reference Range Interpretation Comments Protein, Total (test code 5.9 6.0- 8.3 gm/dL L = 2885-2) Albumin (test code = 3.3 g/dL 3.5-5 L 97316-2) Total Bilirubin (test code 0.4 mg/dL 0.2-1.2 = 1975-2) Bilirubin, Direct (test 0.2 mg/dL 0.1-0.5 code = 1968-7) Alkaline Phosphatase (test 61 U/L 40-150 code = 6768-6) AST (test code = 1920-8) 37 U/L 5-34 H ALT (test code = 1742-6) 132 U/L 6-55 H RICARDO (test code = RICARDO) [employer]er ID - EDASI Lab Interpretation (test Abnormal code = 86961-3) [facility] [id number] 04:50:00 Test Item Value Reference Range Interpretation [...] code = 132 U/L 6-55 H 347) [employer] ID - EDASICBC with platelet count + automated [id number] 04:41:00 Test Item Value Reference Range Interpretation [...] 450 K/CU MM MPV (test code = 55880-2) 9.9 fL 9.4-12.3 nRBC (test code = [...] 2801) Lab Interpretation (test code = Abnormal 72882-8) [facility] & AUTO [id number] 04:41:00 Test Item Value Reference Range Interpretation [...] (BEAKER) (test code = 2801) Hepatitis panel, [id number] 17:25:00 Test Item Value Reference Range Interpretation Comments Hep A IgM (test code = Nonreactive Nonreactive 71457-2) Hep B C IgM (test code = Nonreactive Nonreactive 69160-2) Hepatitis C Ab (test code = Nonreactive Nonreactive 43146-8) HBsAg Screen (test code = Nonreactive Nonreactive 5195-3) RICARDO (test code = RICARDO) [employer] Installer ID - DB Lab Interpretation (test Normal code = 92244-0) [facility], [id number] 17:25:00 Test Item Value Reference Range Interpretation Comments HEPATITIS A IGM ANTIBODY (BEAKER) Nonreactive Nonreactive (test code = 498) HEPATITIS B CORE IGM ANTIBODY Nonreactive Nonreactive (BEAKER) (test code = 645) HEPATITIS C ANTIBODY (BEAKER) Nonreactive Nonreactive (test code = 367) HEPATITIS B SURFACE ANTIGEN (2) Nonreactive Nonreactive (BEAKER) (test code = 2585) [employer]er ID - DBBASIC METABOLIC [id number] 05:43:00 Test Item Value Reference Range Interpretation [...] 1092) DATA TO CALCULA TE ESTIMATED GFR. [employer] Installer ID - PIAYA LHEPATIC FUNCTION [id number] 05:41:00 Test Item Value Reference Range Interpretation [...] code = 185 U/L 6-55 H 347) [employer]er ID - PIAYA LCBC W/PLT COUNT & AUTO [id number] 05:21:00 Test Item Value Reference Range Interpretation [...] (BEAKER) (test code = 2801) U/S, ABDOMINAL, [id number] 22:53:00Reason for exam:->[facility] 1985 Sex: FFINAL [...] Augustin Verified Date/Time: 10/07/2020 22:53:23 Reading Location: [address] Transitional Reading Room US abdomen [id number] 22:53:00Interface, External Ris In - 10/07/2020 10:55 [...] Otherwise normal abdominal ultrasound. Signed: Tana Augustin Veri ed Date/Time: 10/07/2020 22:53:23 Reading Location: [facility] B1 C013T Transitional [facility] (Asymptomatic ONLY[facility] 2020-10-07 20:18:00 Test Item Value Reference Range Interpretation Comments SARS-COV2/RT-PCR Negative Not Detected, (test code = Negative, See 97658-0) external report for linked test SARS-COV-2 [facility] PERFORMING LAB (test code = 99259-7) RICARDO (test code = Negative result for [...] of the Act. Fact Sheet for Healthcare Providers:https://www.Flynn.com/sites/default/f mariah/product/documents/F act_Sheet_HC_Providers_L kzd_WWEF-QqS-7.pdf Fact Sheet for Healthcare Patients:https://www.Food Runner.com/sites/default/fi les/product/documents/Fa ct_Sheet_Patients_Lyra_S ARS-CoV-2.pdf Performing Laboratory:[facility] [place] [address] [facility] ([facility] & REF LABS)2020-10-07 20:18:00 Test Item Value Reference Range Interpretation Comments SARS-COV2/RT-PCR (test Negative Not Detected, Negative, code = 1753184) See external report for linked test SARS-COV-2 PERFORMING LAB [facility] (test code = 6888832) Negative result for this test determines that [...] 564(g) of the Act.Fact Sheet for Healthcare Providers:https://www.CompanyLoop.[employer]/sites/default/files/product/documents/Fact_Sheandrea lasty_AG_Qfxxhppzk_Rvyx_HQXD-HgH-1.pdfFact Sheet for Healthcare Patients:https://www.[employer]/sites/default/files/product/ documents/Cngh_Ovhph_Sbjnasec_Yjcp_ETVJ-VzE-6.pdfPerforming Laboratory:[facility], [place] [id number] 11:18:00 Test Item Value Reference Range Interpretation Comments Lipase (test code = >1200 8-78 H 3040-3) RICARDO (test code = RICARDO) [employer]er ID - AGUEDA C Lab Interpretation (test Abnormal code = 14628-5) [facility]2020-11-18 11:18:00 Test Item Value Reference Range Interpretation Comments LIPASE (BEAKER) (test code = 749) > U/L 8-78 H [employer]er ID - AGUEDA CBASIC METABOLIC [id number] 11:16:00 Test Item Value Reference Range Interpretation [...] 1092) DATA TO CALCULA TE ESTIMATED GFR. [employer]er ID - AGUEDA CLipid [id number] 11:13:00 Test Item Value Reference Range Interpretation Comments Triglycerides (test 77 mg/dL code = 2571-8) Cholesterol (test code 124 mg/dL = 3-3) HDL (test code = 43 mg/dL 2085-07) LDL Calculated (test 66 mg/dL code = 58587-4) RICARDO (test code = RICARDO) Triglyceride Reference Range: Low Risk <150 Borderline 150-199 High Risk 200-499 Very High Risk >=500 Cholesterol Reference Range: Low Risk <200 Borderline 200-239 High Risk >240 HDL Cholesterol Reference Range: Low Risk >=60 High Risk <40 LDL Cholesterol Reference Range: Optimal <100 Near Optimal 100-129 Borderline 130-159 High 160-189 Very High >=190 [employer]er ID - AGUEDA Tee [facility] CenterL[facility] [id number] 11:13:00 Test Item Value Reference Range Interpretation [...] Borderline 130-159 High 160-189 Very High >=190 [employer] Installer ID - AGUEDA FLORESPATIC FUNCTION [id number] 11:13:00 Test Item Value Reference Range Interpretation [...] code = 309 U/L 6-55 H 347) [employer]er ID - AGUEDA CCBC W/PLT COUNT & AUTO [id number] 10:45:00 Test Item Value Reference Range Interpretation [...] (BEAKER) (test code = 2801) BASIC METABOLIC [id number] 03:06:00 Test Item Value Reference Range Interpretation [...] CA) 8.8 MG/DL 8.5-10.1 N HEPATIC FUNCTION [id number] 03:06:00 Test Item Value Reference Range Interpretation [...] 66 Unit/L 45-117 N code = ALKP) [id number] 03:06:00 Test Item Value Reference Range Interpretation Comments LIPASE (test code = LIP) 125 Unit/L 114-286 N UR HCG [id number] 02:40:00 Test Item Value Reference Range Interpretation Comments UR HCG QUAL (test code = HCGQLU) NEGATIVE NEGATIVE UA RFLX MICR CULT IF [id number] 02:38:00 Test Item Value Reference Range Interpretation [...] = UACULT) Indication for culture: Dysuria/FrequencyCBC W/AUTO [id number] 02:37:00 Test Item Value Reference Range Interpretation [...]
[2020-11-26 11:02] LABS: Urine Blood NEGATIVE (NEG); Urine Glucose NEGATIVE (NEG); Urine Protein NEGATIVE (NEG); Urine Specific Gravity >1.030 (1.005-1.030); Urine pH 5.5 (5.0-7.0)
[2020-11-26 11:03] LABS: Absolute Lymphocytes (CBC) 2.2 K/uL (0.7-4.9); Basophils % 0.3 % (0-1.3); Lymphocytes % 15.9 % (15.3-44.8); MPV 8.5 fL (7.6-11.3); RBC Red Blood Cell Count 5.13 M/uL (3.86-4.86)
[2020-11-26] MEDS ORDERED: PROMETHAZINE INJ 25 MG/ML AMP ONE (11:13)
[2020-11-26] MEDS ORDERED: MEPERIDINE HCL 25 MG/ML SYR ONE (11:13)
[2020-11-26 11:22] LABS: ALT/SGPT 71 U/L (12-78); AST/SGOT 90 U/L (15-37); Albumin 3.7 g/dL (3.4-5.0); Alkaline Phosphatase 77 U/L (45-117); BUN Blood Urea Nitrogen 10 mg/dL (7-18); Bicarbonate 26 mmol/L (21-32); Bilirubin Direct 0.2 mg/dL (0-0.2); Bilirubin Total 0.7 mg/dL (0.2-1.0); Glucose Level 137 mg/dL (74-106); Lipase 201 U/L (73-393); Potassium 3.5 mmol/L (3.5-5.1); Protein, Total 7.6 g/dL (6.4-8.2); Sodium Level 139 mmol/L (136-145)
--- NOTE | 2020-11-26 11:37 | RAD REPORT ---
EXAM DESCRIPTION: US - Abdomen Exam Limited - 11/26/2020 11:28 am CLINICAL HISTORY: r/o GB;Abd pain COMPARISON: Abdomen Exam Limited dated 10/07/2020; Abdomen Pelvis W Contrast dated 10/18/2020 FINDINGS: The gallbladder demonstrates sludge and probable tiny gallstones. No pericholecystic fluid or gallbladder wall thickening. The common bile duct is normal measuring 5 mm. The liver demonstrates no findings of intrahepatic biliary dilatation. IMPRESSION: Tiny gallstones gallbladder sludge suspected. No evidence of acute cholecystitis.
--- NOTE | 2020-11-26 12:33 | EDPHYS ---
Physician Documentation [facility] Name: Brandie Rees Age: 35 yrs Sex: Female : 1985 Arrival Date: 11/26/2020 Time: 10:10 Bed 2 Private MD: ED Physician Sotero Sheppard HPI: 11/26 11:42 This 35 yrs old Female presents to ER via Ambulatory with complaints of jr8 Abdominal Pain. 11:42 The patient presents with abdominal pain in the epigastric area, in the upper abdomen. jr8 Onset: The symptoms/episode began/occurred acutely, this morning. The symptoms do not radiate. Associated signs and symptoms: Pertinent positives: nausea and vomiting. The symptoms are described as stabbing. Modifying factors: The symptoms are alleviated by nothing, the symptoms are aggravated by nothing. Severity of pain: At its worst the pain was moderate in the emergency department the pain is unchanged. The patient has not experienced similar symptoms in the past. The patient has not recently seen a physician. 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 - Social history:: Smoking status: Patient denies any tobacco usage or history of. ROS: 11:42 Eyes: Negative for injury, pain, redness, and discharge, ENT: Negative for injury, jr8 pain, and discharge, Neck: Negative for injury, pain, and swelling, Cardiovascular: Negative for chest pain, palpitations, and edema, Respiratory: Negative for shortness of breath, cough, wheezing, and pleuritic chest pain, Back: Negative for injury and pain, MS/Extremity: Negative for injury and deformity, Skin: Negative for injury, rash, and discoloration, Neuro: Negative for headache, weakness, numbness, tingling, and seizure. 11:42 Abdomen/GI: Positive for abdominal pain, nausea and vomiting, Negative for diarrhea, constipation, abdominal cramps, abdominal distension. Exam: 11:42 Cardiovascular: Regular rate and rhythm with a normal S1 and S2. No gallops, murmurs, jr8 or rubs. Normal PMI, no JVD. No pulse deficits. Respiratory: Lungs have equal breath sounds bilaterally, clear to auscultation and percussion. No rales, rhonchi or wheezes noted. No increased work of breathing, no retractions or nasal flaring. Back: No spinal tenderness. No costovertebral tenderness. Full range of motion. Skin: Warm, dry with normal turgor. Normal color with no rashes, no lesions, and no evidence of cellulitis. MS/ Extremity: Pulses equal, no cyanosis. Neurovascular intact. Full, normal range of motion. Neuro: Awake and alert, GCS 15, oriented to person, place, time, and situation. Cranial nerves II-XII grossly intact. Motor strength 5/5 in all extremities. Sensory grossly intact. 11:42 Constitutional: The patient appears alert, awake, in obvious pain, restless. 11:42 Abdomen/GI: Inspection: obese Bowel sounds: active, all quadrants, Palpation: soft, in all quadrants, moderate abdominal tenderness, in the epigastric area, right upper quadrant and left upper quadrant, mass, is not appreciated, rebound tenderness, is not appreciated, voluntary guarding, is not appreciated, involuntary guarding, is not appreciated, no appreciated organomegaly, Indicators: McBurney's point is not tender, Elaine's sign is negative, Rovsing's sign is negative, Liver: tenderness, is not appreciated. Vital Signs: 10:15 Pulse 94; Resp 18; Temp 98.4(O); Pulse Ox 100% ; Weight 113.4 kg; Height 5 ft. 3 in. em (160.02 cm); Pain 10/10; 10:19 BP 129 / 78; em 11:45 BP 118 / 76; Pulse 89; Resp 18; Temp 98.0; Pulse Ox 100% on R/A; ph 10:15 Body Mass Index 44.29 (113.40 kg, 160.02 cm) em MDM: 10:34 Patient medically screened. jr8 12:31 Data reviewed: vital signs, nurses notes, lab test result(s), radiologic studies, jr8 ultrasound. Data interpreted: Pulse oximetry: on room air is 100 %. Interpretation: normal. Counseling: I had a detailed discussion with the patient and/or guardian regarding: the historical points, exam findings, and any diagnostic results supporting the discharge/admit diagnosis, lab results, radiology results, the need for outpatient follow up, a general surgeon, to return to the emergency department if symptoms worsen or persist or if there are any questions or concerns that arise at home. Response to treatment: the patient's symptoms have markedly improved after treatment. ED course: No fever. No acute cholecystitis. Will d/c home to f/u with GS. Knows to come back if worse or if she starts to run fever. 11/26 10:48 Order name: Urine Dipstick--Ancillary (enter results); Complete Time: 11:47 11/26 10:48 Order name: Urine --Ancillary (enter results); Complete Time: 11:47 11/26 10:51 Order name: Basic Metabolic Panel; Complete Time: 11:47 11/26 10:51 Order name: CBC with Diff; Complete Time: 11:47 11/26 10:51 Order name: Hepatic Function; Complete Time: 11:47 11/26 10:51 Order name: Lipase; Complete Time: 11:47 11/26 10:51 Order name: IV Saline Lock; Complete Time: 10:55 11/26 10:51 Order name: Labs collected and sent; Complete Time: 10:56 11/26 10:57 Order name: US Abdomen Limited; Complete Time: 11:47 Administered Medications: 11:05 Drug: Promethazine 12.5 mg Route: IVP; Site: right antecubital; ph 12:38 Follow up: Response: No adverse reaction; Nausea is decreased ss 11:07 Drug: Demerol 25 mg Route: IVP; Site: right antecubital; ph 12:38 Follow up: Response: No adverse reaction; Marked relief of symptoms; Pain is decreased ss Disposition: 15:57 Co-signature as Attending Physician, Sotero Sheppard MD I agree with the assessment and kdr plan of care. Disposition: 11/26/20 12:32 Discharged to Home. Impression: Cholelithiasis. - Condition is Stable. - Discharge Instructions: Cholelithiasis. - Prescriptions for Tylenol- Codeine #3 300-30 mg Oral Tablet - take 2 tablets by ORAL route every 6 hours As needed; 20 tablet. promethazine 25 mg Oral Tablet - take 1 tablet by ORAL route every 6 hours As needed; 20 tablet. Cipro 500 mg Oral Tablet - take 1 tablet by ORAL route every 12 hours for 10 days; 20 tablet. - Medication Reconciliation Form, Thank You Letter, Antibiotic Education, Prescription Opioid Use form. - Follow up: Deangelo Savage MD; When: 2 - 3 days; Reason: Recheck today's complaints, Continuance of care, Re-evaluation by your physician. - Problem is new. - Symptoms have improved. Signatures: Dispatcher [employer] EDRI Sotero Sheppard MD MD [facility] Emiliano Molina RN RN Carissa Izquierdo RN RN You Otero, EDUARDO PA jr8 Ira Child RN RN ph Corrections: (The following items were deleted from the chart) 12:39 12:32 11/26/2020 12:32 Discharged to Home. Impression: Cholelithiasis. Condition is ss Stable. Forms are Medication Reconciliation Form, Thank You Letter, Antibiotic Education, Prescription Opioid Use. Follow up: Deangelo Savage; When: 2 - 3 days; Reason: Recheck today's complaints, Continuance of care, Re-evaluation by your physician. Problem is new. Symptoms have improved. jr8
--- NOTE | 2020-11-26 12:33 | ER ---
Nurse's Notes [facility] Name: Brandie Rees Age: 35 yrs Sex: Female : 1985 Arrival Date: 11/26/2020 Time: 10:10 Bed 2 Private MD: Diagnosis: Cholelithiasis Presentation: 11/26 10:15 Chief complaint: Patient states: epigastric pain that started this morning, also em reports nausea, denies fever. Coronavirus screen: Client denies travel out of the [place] in the last 14 days. Ebola Screen: Patient negative for fever greater than or equal to 101.5 degrees Fahrenheit, and additional compatible Ebola Virus Disease symptoms Patient denies exposure to infectious person. Patient denies travel to an Ebola-affected area in the 21 days before illness onset. No symptoms or risks identified at this time. Initial Sepsis Screen: Does the patient meet any 2 criteria? HR > 90 bpm. No. Patient's initial sepsis screen is negative. Does the patient have a suspected source of infection? Yes:. Risk Assessment: Do you want to hurt yourself or someone else? Patient reports no desire to harm self or others. Onset of symptoms was November 26, 2020. 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 - Social history:: Smoking status: Patient denies any tobacco usage or history of. Screenin:10 Abuse screen: Denies threats or abuse. Denies injuries from another. Nutritional ph screening: No deficits noted. Tuberculosis screening: No symptoms or risk factors identified. Fall Risk None identified. Assessment: 11:08 General: Appears in no apparent distress. uncomfortable, slender, Behavior is ph cooperative, appropriate for age, crying, Denies fever. Pain: Complains of pain in epigastric area and right upper quadrant Pain currently is 10 out of 10 on a pain scale. Quality of pain is described as sharp, stabbing, Pain began suddenly. Neuro: Level of Consciousness is awake, alert, obeys commands, Oriented to person, place, time, situation. Cardiovascular: Capillary refill < 3 seconds in bilateral fingers Patient's skin is warm and dry. Respiratory: Airway is patent Respiratory effort is even, unlabored. GI: Abdomen is obese, Abd is soft X 4 quads Abdomen is tender to palpation in epigastric area and right upper quadrant Reports upper abdominal pain, diarrhea, epigastric pain, nausea, vomiting. : No signs and/or symptoms were reported regarding the genitourinary system. Derm: Skin is intact, is healthy with good turgor, Skin is pink, warm \T\ dry. Musculoskeletal: Circulation, motion, and sensation intact. Range of motion: intact in all extremities. 11:11 Reassessment: Pt taken to US. ph 12:28 Reassessment: Patient appears in no apparent distress at this time. EDUARDO Cárdenas at bedside ss discussing results and plan of care with patient. Vital Signs: 10:15 Pulse 94; Resp 18; Temp 98.4(O); Pulse Ox 100% ; Weight 113.4 kg; Height 5 ft. 3 in. em (160.02 cm); Pain 10/10; 10:19 BP 129 / 78; em 11:45 BP 118 / 76; Pulse 89; Resp 18; Temp 98.0; Pulse Ox 100% on R/A; ph 10:15 Body Mass Index 44.29 (113.40 kg, 160.02 cm) em ED Course: 10:10 Patient arrived in ED. rg4 10:17 Triage completed. em 10:18 Arm band placed on. em 10:34 [facility]. jr8 10:34 Sotero Sheppard MD is Attending Physician. jr8 10:34 Ira Child, VIOLETA is Primary Nurse. ph 10:45 Patient has correct armband on for positive identification. Placed in gown. Bed in low mh5 position. Call light in reach. Side rails up X 1. Warm blanket given. Pulse ox on. NIBP on. 10:45 Urine collected: clean catch specimen, cloudy. 5 10:53 Initial lab(s) drawn, by me, sent to lab. Inserted saline lock: 20 gauge in right 5 antecubital area, using aseptic technique. Blood collected. 10:55 Basic Metabolic Panel Sent. 5 10:55 CBC with Diff Sent. mh5 10:55 Hepatic Function Sent. 5 10:55 Lipase Sent. 5 10:56 Urine --Ancillary (enter results) Sent. 5 10:56 Urine Dipstick--Ancillary (enter results) Sent. 5 11:11 Patient taken to ultrasound. via wheelchair. ph 11:28 US Abdomen Limited In Process Unspecified. EDMN 12:32 Deangelo Savage MD is Referral Physician. [facility] 12:35 No provider procedures requiring assistance completed. IV discontinued, intact, ss bleeding controlled, No redness/swelling at site. Pressure dressing applied. Administered Medications: 11:05 Drug: Promethazine 12.5 mg Route: IVP; Site: right antecubital; ph 12:38 Follow up: Response: No adverse reaction; Nausea is decreased ss 11:07 Drug: Demerol 25 mg Route: IVP; Site: right antecubital; ph 12:38 Follow up: Response: No adverse reaction; Marked relief of symptoms; Pain is decreased ss Outcome: 12:32 Discharge ordered by . jr8 12:35 Discharged to home ambulatory. ss 12:35 Condition: improved 12:35 Discharge instructions given to patient, Instructed on discharge instructions, follow up and referral plans. medication usage, Demonstrated understanding of instructions, follow-up care, medications, Prescriptions given X 3. 12:39 Patient left the ED. ss Signatures: Dispatcher [employer] Emiliano Alejo, RN Carissa Jefferson RN RN You Otero PA PA jrIra Taylor RN RN ph Garcia, Rubi rg4 Martinez, Maria [facility], [place]
== END 2020-11-26 12:39 | disposition home or self-care (01) ==
LOC: ER 10:09
DX: K80.20 Calculus of gallbladder without cholecystitis without obstruction (principal)
CPT/HCPCS: 36415; 76705; 80048; 80076; 81003; 81025; 83690; 85025; 96374; 96375; 99284; J2175; J2550